=== PATIENT | male | born 1950 | race Caucasian/White ===

== ENCOUNTER 2017-03-04 11:51 | Inpatient (IN) | payer MEDICARE ==
[~2017-03-04] VITALS: Ht 182.9 cm; Wt 100.5 kg
[~2017-03-04 11:51] MED LIST: AMBI5TAB PO; ASPI81CH3; CIAL20TA PO; OMPR20CCR PO; TAMS0.4C67 PO
[2017-03-04 11:54] VITALS: BP 149/72; PULSE 78; RESP 16; TEMP 98.2; O2SAT 98
[2017-03-04] MEDS ORDERED: SODIUM CHLOR 0.9% 1000 ML INJ 1,000 ML IV SCH (13:16)
--- NOTE | 2017-03-04 13:20 | PD ---
HPI Chief Complaint: Abdominal Pain Time Seen by Provider: 13:17 Travel History International Travel<30 days: No Contact w/Intl Traveler<30days: No Traveled to known affect area: No History of Present Illness HPI 66-year-old male presents to the emergency department for evaluation of abdominal pain that started approximately 6 days ago. He states the pain is worse after eating. He reports history of gastric bypass surgery. He states he had similar pain, but not quite as bad in December. He has CT scan of the abdomen/pelvis done at that time which showed no acute abnormality. Patient states pain resolved on its own, but came back approximately 6 days ago. Patient states the pain worsens for several hours after eating that he is quite eating. The patient saw his primary care physician, Dr. Angel, who recommended he come to the emergency department for further evaluation. The patient denies any vomiting. He reports no bowel movement in the past 3 days. No fevers. No chest pain or shortness of breath. Patient is currently on Flomax, Cialis, [id number] Prilosec. He has not yet followed up with gastroenterology, but does have a referral. PFSH Past Medical History Arthritis: Yes Asthma: No Blood Disorders: No Cancer: No Cardiovascular Problems: No High Cholesterol: Yes (TAKING CALUDET) Chest Pain: No Congestive Heart Failure: No COPD: No Cerebrovascular Accident: No Diabetes: No Endocrine: No Gastrointestinal Disorders: Yes (GASTRIC BYPASS 3 WKS AGO, 5 WELL HEALING TINY SURGICAL WOUNDS ON ABD.) GERD: Yes Genitourinary: No Headaches: No Hepatitis: No Hiatal Hernia: No Hypertension: Yes Immune Disorder: No Kidney Stones: Yes Musculoskeletal: No Neurologic: No Psychiatric: No Reproductive: No Respiratory: No Migraines: No Myocardial Infarction: No Renal Failure: No Seizures: No Sleep Apnea: No Thyroid Disease: No Ulcer: No Past Surgical History Abdominal Surgery: Yes (GASTRIC BYPASS 08/02/08) AICD: No Appendectomy: No Body Medical Devices: DENTAL IMPLANTS Cardiac Surgery: No Cholecystectomy: No Ear Surgery: No Endocrine Surgery: No Eye Surgery: Yes (BILAT CATARACT EXT) Genitourinary Surgery: Yes (LITHOTRIPSY) Gynecologic Surgery: No Joint Replacement: No Oral Surgery: No Thoracic Surgery: No Social History Alcohol Use: No Tobacco Use: No Substance Use: No Allergies-Medications (Allergen,Severity, Reaction): Coded Allergies: Neosporin (Verified Allergy, Severe, Rash-ALL "SPORINS" COAUSE A RASH AND BLISTERS", 12/20/15) Reported Meds & Prescriptions Reported Meds & Active Scripts Active Reported Eye Vitamins & Minerals (Multiple Vitamins W/ Minerals) 1 Tab Tab 1 Tab PO DAILY Multi Vitamin Daily (Multiple Vitamin) 1 Tab Tab 1 Tab PO DAILY Vitamin B-12 (Cyanocobalamin) 1,000 Mcg Tab 2,000 Mcg PO DAILY Aspirin Adult Low Strength (Aspirin) 81 Mg Tabdr 81 Mg PO DAILY Prilosec (Omeprazole Magnesium) 20 Mg Tab 20 Mg PO DAILY Cialis (Tadalafil) 5 Mg Tab 5 Mg PO DAILY Do not exceed 1 dose/day. Review of Systems Except as stated in HPI: all other systems reviewed are Neg Physical Exam Narrative GENERAL: Well-nourished, well-developed male patient, ambulatory. Afebrile. SKIN: Focused skin assessment warm/dry. HEAD: Normocephalic. Atraumatic. EYES: No scleral icterus. No injection or drainage. NECK: Supple, trachea midline. No JVD or lymphadenopathy. CARDIOVASCULAR: Regular rate and rhythm without murmurs, gallops, or rubs. RESPIRATORY: Breath sounds equal bilaterally. No accessory muscle use. Lungs sounds are clear to auscultation. GASTROINTESTINAL: Abdomen soft and nondistended. Patient has tenderness in the epigastric region, right upper quadrant, periumbilical region, but the pain is the worst in the epigastric region. MUSCULOSKELETAL: No cyanosis, or edema. BACK: Nontender without obvious deformity. No CVA tenderness. Data Data Last Documented VS Vital Signs Date Time Temp Pulse Resp B/P Pulse Ox O2 Delivery O2 Flow Rate FiO2 03/04/17 14:12 53 18 133/65 100 Room Air 03/04/17 11:54 98.2 Orders Complete Blood Count With Diff (03/04/17 13:16) Comprehensive Metabolic Panel (03/04/17 13:16) Lipase (03/04/17 13:16) Urinalysis - C+S If Indicated (03/04/17 13:16) Ct Abd/Pel W Iv Contrast(Rout) (03/04/17 13:16) Iv Access Insert/Monitor (03/04/17 13:16) Ecg Monitoring (03/04/17 13:16) Oximetry (03/04/17 13:16) Ondansetron Inj (Zofran Inj) (03/04/17 13:30) Sodium Chlor 0.9% 1000 Ml Inj (Ns 1000 M (03/04/17 13:16) Sodium Chloride 0.9% Flush (Ns Flush) (03/04/17 13:30) Morphine Inj (Morphine Inj) (03/04/17 13:30) Iohexol 350 Inj (Omnipaque 350 Inj) (03/04/17 14:31) Consult General Surgery (03/04/17 ) (Hub Use Only)Inp Phy Cons/Ref (03/04/17 ) Labs Laboratory Tests Test 03/04/17 03/04/17 13:30 13:45 White Blood Count 7.3 TH/MM3 Red Blood Count 4.17 MIL/MM3 Hemoglobin 12.5 GM/DL Hematocrit 37.5 % Mean Corpuscular Volume 89.9 FL Mean Corpuscular Hemoglobin 30.0 PG Mean Corpuscular Hemoglobin 33.4 % Concent Red Cell Distribution Width 12.9 % Platelet Count 193 TH/MM3 Mean Platelet Volume 8.1 FL Neutrophils (%) (Auto) 67.1 % Lymphocytes (%) (Auto) 20.7 % Monocytes (%) (Auto) 10.7 % Eosinophils (%) (Auto) 1.1 % Basophils (%) (Auto) 0.4 % Neutrophils # (Auto) 4.9 TH/MM3 Lymphocytes # (Auto) 1.5 TH/MM3 Monocytes # (Auto) 0.8 TH/MM3 Eosinophils # (Auto) 0.1 TH/MM3 Basophils # (Auto) 0.0 TH/MM3 CBC Comment DIFF FINAL Differential Comment Sodium Level 142 MEQ/L Potassium Level 3.6 MEQ/L Chloride Level 105 MEQ/L Carbon Dioxide Level 31.1 MEQ/L Anion Gap 6 MEQ/L Blood Urea Nitrogen 10 MG/DL Creatinine 0.65 MG/DL Estimat Glomerular Filtration 123 ML/MIN Rate Random Glucose 105 MG/DL Calcium Level 8.3 MG/DL Total Bilirubin 0.5 MG/DL Aspartate Amino Transf 31 U/L (AST/SGOT) Alanine Aminotransferase 42 U/L (ALT/SGPT) Alkaline Phosphatase 171 U/L Total Protein 6.6 GM/DL Albumin 3.0 GM/DL Lipase 198 U/L Urine Color YELLOW Urine Turbidity CLEAR Urine pH 6.5 Urine Specific [place] 1.008 Urine Protein NEG mg/dL Urine Glucose (UA) NEG mg/dL Urine Ketones 10 mg/dL Urine Occult Blood NEG Urine Nitrite NEG Urine Bilirubin NEG Urine Urobilinogen LESS THAN 2.0 MG/DL Urine Leukocyte Esterase SMALL Urine RBC 1 /hpf Urine WBC 4 /hpf Urine Squamous Epithelial <1 /hpf Cells Urine Bacteria FEW /hpf Microscopic Urinalysis Comment CULT NOT INDICATED MDM Medical Decision Making Medical Screen Exam Complete: Yes Emergency Medical Condition: Yes Medical Record Reviewed: Yes Interpretation(s) Last Impressions Abdomen/Pelvis CT 03/04/17 1316 Signed Impressions: Service Date/Time: Saturday, March 04, 2017 14:29 - CONCLUSION: 1. Markedly abnormal examination demonstrating dilated thrombosed and inflamed mesenteric veins (SMV and IMV) with thrombus extending to the confluence of the portal vein. Segmental intrahepatic portal vein thrombus likely reflecting emboli. The bowel appears grossly normal at this time without evidence for significant bowel thickening, infarction, or perforation. There is no evidence for significant portal hypertension or cirrhosis. Prior CT examination demonstrated patent but prominent mesenteric veins. Overall findings may reflect a low flow mesenteric AV malformation with subsequent thrombosis or significant outflow obstruction with subsequent thrombosis although differential considerations include severe enteritis and portal hypertension in the appropriate clinical setting. Urgent surgical consultation is recommended. 1. Findings were personally discussed with Dr. Zhong. Mejia Shin MD Differential Diagnosis Pancreatitis versus bowel obstruction versus diverticulitis versus gastritis Narrative Course 66 year old male presents to the emergency department for evaluation of worsening abdominal pain over the past 6 days. CBC, CMP, lipase, UA, CT abdomen /pelvis with IV contrast is ordered and pending. Patient is given normal saline 1 L IV bolus, Zofran 4 mg IV, morphine 4 mg IV. CBC shows slight anemia with hemoglobin 12.5, hematocrit 37.5. CMP shows no acute abnormality. Alkaline phosphatase is elevated at 171. UA shows 10 ketones, no evidence of acute infection. CT the abdomen/pelvis with IV contrast shows markedly abnormal examination demonstrating dilated thrombosed and inflamed mesenteric veins (SMV and IMV) with thrombus extending to the confluence of the portal vein. Segmental intrahepatic portal vein thrombus likely reflecting emboli. The bowel appears grossly normal at this time without evidence for significant bowel thickening, infarction, or perforation. There is no evidence for significant portal hypertension or cirrhosis. Prior CT examination demonstrated patent but prominent mesenteric veins. Overall findings may reflect a low flow mesenteric AV malformation with subsequent thrombosis or significant outflow obstruction with subsequent thrombosis although differential considerations include severe enteritis and portal hypertension in the appropriate clinical setting. Urgent surgical consultation is recommended. I spoke to Dr. Sanford, general surgeon, regarding CT results. He will see the patient and review imaging. [facility] is paged for admission. Dr. Tabor accepted admission. Diagnosis Primary Impression: Mesenteric vein thrombosis Admitting Information Admitting Physician Requests: Admit Diane Hammond Mar 04, 2017 13:20
[2017-03-04] MEDS ORDERED: SODIUM CHLORIDE 0.9% FLUSH 10 ML FLUSH IV FLUSH PRN ×2 (13:30→16:45)
[2017-03-04] MEDS ORDERED: ONDANSETRON HCL 4 MG/2 ML VIAL IVP ONE (13:30)
[2017-03-04] MEDS ORDERED: MORPHINE SULFATE 4 MG/ML INJ IV PUSH ONE (13:30)
[2017-03-04 13:41] LABS: AUTOMATED NEUTROPHIL # 4.9 TH/MM3 (1.8-7.7); BASOPHIL % 0.4 % (0.0-2.0); EOSINOPHIL # 0.1 TH/MM3 (0-0.4); EOSINOPHIL % 1.1 % (0.0-4.0); HEMATOCRIT 37.5 % (39.0-51.0); HEMO FLAGS DIFF FINAL; LYMPH % 20.7 % (9.0-44.0); LYMPHOCYTE # 1.5 TH/MM3 (1.0-4.8); MEAN CELL VOLUME 89.9 FL (80.0-100.0); MEAN CORPUSCULAR HGB CONC 33.4 % (32.0-36.0); MONO % 10.7 % (0.0-8.0); NEUT % 67.1 % (16.0-70.0); PLATELET COUNT 193 TH/MM3 (150-450); RED BLOOD COUNT 4.17 MIL/MM3 (4.50-5.90); RED CELL DISTRIBUTION WIDTH 12.9 % (11.6-17.2); WHITE BLOOD COUNT 7.3 TH/MM3 (4.0-11.0)
[2017-03-04 13:55] LABS: ALT (GPT) 42 U/L (12-78); ANION GAP 6 MEQ/L (5-15); AST (GOT) 31 U/L (15-37); BICARBONATE 31.1 MEQ/L (21.0-32.0); BLOOD UREA NITROGEN 10 MG/DL (7-18); CHLORIDE 105 MEQ/L (98-107); GLOMERULAR FILTRATION RATE 123 ML/MIN (>89); POTASSIUM 3.6 MEQ/L (3.5-5.1); SODIUM (NA) 142 MEQ/L (136-145)
[2017-03-04 13:58] LABS: ALKALINE PHOSPHATASE 171 U/L (45-117); TOTAL BILIRUBIN ADULT 0.5 MG/DL (0.2-1.0)
[2017-03-04] MEDS ORDERED: MULT1TAB46 PO (14:09)
[2017-03-04] MEDS ORDERED: VITA10002 PO (14:09)
[2017-03-04] MEDS ORDERED: PRIL20TA2 PO (14:09)
[2017-03-04] MEDS ORDERED: CIAL5TAB PO (14:09)
[2017-03-04] MEDS ORDERED: ASPI1TAB91 PO (14:09)
[2017-03-04] MEDS ORDERED: MULT1TAB93 PO (14:09)
[2017-03-04 14:12] VITALS: BP 133/65; PULSE 53; RESP 18; O2SAT 100
[2017-03-04] MEDS ORDERED: IOHEXOL 350 MG/ML 10 ML VIAL (for RAD DIAG) IV ONE (14:31)
[2017-03-04 14:46] LABS: BACTERIA, URINE FEW /hpf; BLOOD, URINE NEG (NEG); COMMENT (UR) CULT NOT INDICATED; CULTURE IF INDICATED CULT NOT INDICATED; GLUCOSE,URINE NEG (NEG); KETONE, URINE 10 mg/dL (NEG); NITRITE,URINE NEG (NEG); PH, URINE 6.5 (5.0-8.5); SQUAMOUS EPITHELIAL CELL URINE <1 /hpf (0-5); URINE COLOR YELLOW (YELLW/STRAW)
--- NOTE | 2017-03-04 15:57 | RADRPT ---
EXAM DATE/TIME: 03/04/2017 14:29 [facility] COMPARISON: No previous studies available for comparison. INDICATIONS : Abdomen pain for 7 days. IV CONTRAST: 97 cc Omnipaque 350 (iohexol) IV ORAL CONTRAST: No oral contrast ingested. RADIATION DOSE: 12.99 CTDIvol (mGy) MEDICAL HISTORY : Benign prostatic hyperplasia, (BPH). Renal calculi. SURGICAL HISTORY : Gastric bypass 08/02/08 ENCOUNTER: Initial ACUITY: 1 week PAIN SCALE: 5/10 LOCATION: upper quadrant TECHNIQUE: Volumetric scanning of the abdomen and pelvis was performed. Using automated exposure control and ad justment of the mA and/or kV according to patient size, radiation dose was kept as low as reasonably achievable to obtain optimal diagnostic quality images. FINDINGS: Examination is markedly abnormal. The SMV and IMV are markedly dilated and appear diffusely thrombose d with prominent vasa recta. There is significant associated inflammatory stranding along the course of the veins with thrombus terminating centrally just beyond the confluence of the portal vein. Splen ic vein is patent. Central portal vein is patent. Thrombus is noted in the segmental branches of the portal vein most prominently involving the posterior segment 6 and segment 4 with geographic enhancem ent of the liver. There is no significant bowel wall thickening, pneumatosis, or free air at this dat e. Bowel otherwise appear grossly unremarkable. Aorta is patent. Celiac, SMV, and IMV are widely hernandez nt. Retrospective review of CT exam from 12/25/16 demonstrates prominent mesenteric veins which otherwise appear patent without significant inflammatory change. Overall findings may reflect a low flow mesent bolivar AV malformation with subsequent thrombosis or significant outflow obstruction with subsequent th rombosis although differential considerations include severe enteritis and portal hypertension in the appropriate clinical setting. Of note, there is no evidence for significant portal hypertension with normal size spleen are and no significant volume loss to suggest cirrhosis. Remainder the examination is unchanged. Postsurgical features of prior gastric bypass are noted. Sple en, adrenal glands, and pancreas appear unremarkable. Kidneys demonstrate symmetrical enhancement wit hout evidence for hydronephrosis. Redemonstration of calcified calculi in the inferior pole of the le ft kidney. Bladder is mildly distended but otherwise unremarkable. There is nonspecific enlargement o f the prostate containing calcification. Redemonstration of small fat-containing left inguinal hernia . CONCLUSION: 1. Markedly abnormal examination demonstrating dilated thrombosed and inflamed mesenteric veins (SMV and IMV) with thrombus extending to the confluence of the portal vein. Segmental intrahepatic portal vein thrombus likely reflecting emboli. The bowel appears grossly normal at this time without evidenc e for significant bowel thickening, infarction, or perforation. There is no evidence for significant portal hypertension or cirrhosis. Prior CT examination demonstrated patent but prominent mesenteric v eins. Overall findings may reflect a low flow mesenteric AV malformation with subsequent thrombosis o r significant outflow obstruction with subsequent thrombosis although differential considerations inc lude severe enteritis and portal hypertension in the appropriate clinical setting. Urgent surgical co nsultation is recommended. 1. Findings were personally discussed with Dr. Zhong. Mejia Shin MD on March 04, 2017 at 14:57 Board Certified Radiologist. This report was verified electronically.
[2017-03-04] MEDS ORDERED: LACTULOSE SYRUP 20 GM/30 ML CUP PO PRN (16:45)
[2017-03-04] MEDS ORDERED: ACETAMINOPHEN 325 MG TAB PO PRN (16:45)
[2017-03-04] MEDS ORDERED: BISACODYL 10 MG SUPP RECTAL PRN (16:45)
[2017-03-04] MEDS ORDERED: MAGNESIUM HYDROXIDE SUSP 30 ML CUP PO PRN (16:45)
[2017-03-04] MEDS ORDERED: NALOXONE HCL 0.4 MG/ML AMP IV PRN (16:45)
[2017-03-04] MEDS ORDERED: SENNOSIDES 8.6 MG TAB PO PRN (16:45)
[2017-03-04 17:02] VITALS: O2SAT 99
[2017-03-04] MEDS: SODIUM CHLOR 0.9% 1000 ML INJ 1,000 ML IV SCH ×2 (17:56→20:26)
[2017-03-04 17:57] LABS: RETIC % 0.9 % (0.4-3.0); REVIEW FLAG FINAL
[2017-03-04 18:00] VITALS: BP 170/72; PULSE 62; RESP 18; O2SAT 97
--- NOTE | 2017-03-04 18:34 | HHI.HP ---
[facility] Ton Zarate MD Admission Diagnosis mesenteric vein thrombosis/inflammation Diagnoses: Chief Complaint: Abdominal pain Travel History International Travel<30 Days: No Contact w/Intl Traveler <30 Da: No Traveled to Known Affected Are: No History of Present Illness Written by Ailyn Georges, acting as scribe for Dr. Tabor on 03/04/17 at 18:07. Patient is a 66-year-old male with primary medical history of BPH, history of diabetes, history of gastric bypass who came into the hospital for complaints of severe abdominal pain. Patient states that pain came in last December and they did a CAT scan and found during that time. About 7 days ago pain restarted. Pain is described as sharp mid abdominal pain, aggravated by eating, associated with nausea, rated 3 over 4 intermittently and 10 over 10 with occurrence. Patient has tried taking Tylenol but it wasn't relieved and has been taking 6-10 Advil per day within the last few days. He hasn't been eating well and is very nauseous every time. States that he lost 12 pounds in the last 4 weeks. He called his primary care doctor today and was told to go to the ED for further evaluation. He states he his urine color is orange with decrease water intake. 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 Denies fevers, vomiting, diarrhea, chest pain, palpitations. Denies dizziness, headaches. Denies shortness of breath, cough, dyspnea. Denies change in vision, weakness. Denies dysuria, hematuria. Review of Systems Except as stated in HPI: all other systems reviewed are Neg Past Family Social History Past Medical History Arthritis Multiple kidney stones Hernia Diverticulitis BPH History of diabetes but secondary to gastric bypass he was able to his blood sugars controlled. Multiple rectal fistulas Past Surgical History Gastric bypass 9 years ago 2008 Lithotripsy Bilateral cataract extraction Reported Medications Reported Meds & Active Scripts Active Reported Eye Vitamins & Minerals (Multiple Vitamins W/ Minerals) 1 Tab Tab 1 Tab PO DAILY Multi Vitamin Daily (Multiple Vitamin) 1 Tab Tab 1 Tab PO DAILY Vitamin B-12 (Cyanocobalamin) 1,000 Mcg Tab 2,000 Mcg PO DAILY Aspirin Adult Low Strength (Aspirin) 81 Mg Tabdr 81 Mg PO DAILY Prilosec (Omeprazole Magnesium) 20 Mg Tab 20 Mg PO DAILY Cialis (Tadalafil) 5 Mg Tab 5 Mg PO DAILY Do not exceed 1 dose/day. Allergies: Coded Allergies: Neosporin (Verified Allergy, Severe, Rash-ALL "SPORINS" COAUSE A RASH AND BLISTERS", 12/20/15) Active Ordered Medications Current Medications Medications (Trade) Dose Ordered Sig/Aman Route Start Time Stop Time Status Last Admin (NS 1000 ml Inj) 1,000 ml @ 100 mls/hr Q10H IV 03/04/17 17:00 03/04/17 17:56 (NS Flush) 2 ml UNSCH PRN IV FLUSH 03/04/17 16:45 (NS Flush) 2 ml BID IV FLUSH 03/04/17 21:00 (Tylenol) 650 mg Q4H PRN PO 03/04/17 16:45 (Narcan Inj) 0.4 mg UNSCH PRN IV 03/04/17 16:45 (Rajani-Colace) 1 tab BID PO 03/04/17 21:00 (Milk Of Magnesia Liq) 30 ml Q12H PRN PO 03/04/17 16:45 (Senokot) 17.2 mg Q12H PRN PO 03/04/17 16:45 (Dulcolax Supp) 10 mg DAILY PRN RECTAL 03/04/17 16:45 (Lactulose Liq) 30 ml DAILY PRN PO 03/04/17 16:45 (Morphine Inj) 5 mg Q4H PRN IV PUSH 03/04/17 18:15 UNV Family History Mother had stomach and lung cancer Social History Denies alcohol use Denies tobacco use Denies illicit drug use Physical Exam Vital Signs Vital Signs Date Time Temp Pulse Resp B/P Pulse Ox O2 Delivery O2 Flow Rate FiO2 03/04/17 17:02 99 21 03/04/17 14:12 53 18 133/65 100 Room Air 03/04/17 11:54 98.2 78 16 149/72 98 Physical Exam GENERAL: This is a well-nourished, well-developed patient, in no apparent distress. SKIN: Warm and dry. HEAD: Atraumatic. Normocephalic. No temporal or scalp tenderness. EYES: Pupils equal round and reactive. No scleral icterus. No injection or drainage. ENT: Nose without bleeding. Throat without erythema. Uvula midline. Airway patent. NECK: Trachea midline. No JVD or lymphadenopathy. CARDIOVASCULAR: Regular rate and rhythm without murmurs, gallops, or rubs. RESPIRATORY: Clear to auscultation. Breath sounds equal bilaterally. No wheezes , rales, or rhonchi. GASTROINTESTINAL: Abdomen soft, nondistended. Bowel sounds active 4. Midabdominal tenderness to palpation MUSCULOSKELETAL: Extremities without clubbing, cyanosis, bilateral lower extremity trace edema. NEUROLOGICAL: Awake and alert. Oriented to time, person, place, situation. Motor and sensory grossly within normal limits. Normal speech. Laboratory Laboratory Tests Test 03/04/17 03/04/17 13:30 13:45 White Blood Count 7.3 Red Blood Count 4.17 Hemoglobin 12.5 Hematocrit 37.5 Mean Corpuscular Volume 89.9 Mean Corpuscular Hemoglobin 30.0 Mean Corpuscular Hemoglobin 33.4 Concent Red Cell Distribution Width 12.9 Platelet Count 193 Mean Platelet Volume 8.1 Neutrophils (%) (Auto) 67.1 Lymphocytes (%) (Auto) 20.7 Monocytes (%) (Auto) 10.7 Eosinophils (%) (Auto) 1.1 Basophils (%) (Auto) 0.4 Neutrophils # (Auto) 4.9 Lymphocytes # (Auto) 1.5 Monocytes # (Auto) 0.8 Eosinophils # (Auto) 0.1 Basophils # (Auto) 0.0 CBC Comment DIFF FINAL Differential Comment Blood Smear Pathologist Review Reticulocyte Count 0.9 Absolute Reticulocyte Count 36.0 Haptoglobin 185 Sodium Level 142 Potassium Level 3.6 Chloride Level 105 Carbon Dioxide Level 31.1 Anion Gap 6 Blood Urea Nitrogen 10 Creatinine 0.65 Estimat Glomerular Filtration 123 Rate Random Glucose 105 Calcium Level 8.3 Total Bilirubin 0.5 Direct Bilirubin 0.2 Aspartate Amino Transf 31 (AST/SGOT) Alanine Aminotransferase 42 (ALT/SGPT) Alkaline Phosphatase 171 Lactate Dehydrogenase 185 Total Protein 6.6 Albumin 3.0 Lipase 198 Urine Color YELLOW Urine Turbidity CLEAR Urine pH 6.5 Urine Specific [place] 1.008 Urine Protein NEG Urine Glucose (UA) NEG Urine Ketones 10 Urine Occult Blood NEG Urine Nitrite NEG Urine Bilirubin NEG Urine Urobilinogen LESS THAN 2.0 Urine Leukocyte Esterase SMALL Urine RBC 1 Urine WBC 4 Urine Squamous Epithelial <1 Cells Urine Bacteria FEW Microscopic Urinalysis Comment CULT NOT INDICATED Result Diagram: 03/04/17 1330 03/04/17 1330 Imaging Last Impressions Abdomen/Pelvis CT 03/04/17 1316 Signed Impressions: Service Date/Time: Saturday, March 04, 2017 14:29 - CONCLUSION: 1. Markedly abnormal examination demonstrating dilated thrombosed and inflamed mesenteric veins (SMV and IMV) with thrombus extending to the confluence of the portal vein. Segmental intrahepatic portal vein thrombus likely reflecting emboli. The bowel appears grossly normal at this time without evidence for significant bowel thickening, infarction, or perforation. There is no evidence for significant portal hypertension or cirrhosis. Prior CT examination demonstrated patent but prominent mesenteric veins. Overall findings may reflect a low flow mesenteric AV malformation with subsequent thrombosis or significant outflow obstruction with subsequent thrombosis although differential considerations include severe enteritis and portal hypertension in the appropriate clinical setting. Urgent surgical consultation is recommended. 1. Findings were personally discussed with Dr. Zhong. Mejia Shin MD Assessment and Plan Problem List: (1) Mesenteric vein thrombosis ICD Code: I81 Status: Acute Assessment and Plan Patient is a 66-year-old male with primary medical history of BPH, history of diabetes, history of gastric bypass who came into the hospital for complaints of severe abdominal pain. 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 Presented today with severe abdominal pain. - CT of the abdomen and pelvis showed 1. markedly abnormal examination demonstrating dilated thrombosed and inflamed mesenteric veins (SMV and IMV) with thrombus extending to the confluence of the portal vein. Segmental intrahepatic portal vein thrombus likely reflecting emboli. The bowel appears grossly normal at this time without evidence of significant bowel thickening, infarction, or perforation. There is no evidence for significant portal hypertension or cirrhosis. Prior CT examination demonstrated patent prominent mesenteric veins. Overall findings may reflect a low flow mesenteric AV malformation with subsequent thrombosis or significant outflow obstruction with subsequent thrombosis although the differential considerations include severe enteritis and portal hypertension in appropriate clinical setting. Urgent surgical consultation is recommended. - Surgical consult input appreciated. - Hematology consult input appreciated. May warrant anticoagulation versus surgical intervention. - Keep patient nothing by mouth for now. IV fluids for hydration. - Pain medication IV morphine. - UA ketones 10, small leukoesterase, small urine bacteria - not indicated for cultures. - Check urine hemosiderin, haptoglobin, LDH serum, direct bilirubin, direct Yoel, peripheral smear, reticulocyte count - Repeat CBC, BMP in the AM. Anemia, normocytic normochromic - Can also be related to hemolysis as a presentation of PNH - Monitor CBC trend Full code. SCDs. This note was transcribed by FEDERICO Dietz. I, Dr. Walter Tabor personally performed the history, physical exam, and medical decision making; and confirmed the accuracy of the information in the transcribed note. Authenticated by Dr. Walter Tabor on 03/04/17 at 22:09. Code Status Full code Discussed Condition With Patient, family - and friend, ED attending Physician Certification 2 Midnight Certification Type: Admission for Inpatient Services Order for Inpatient Services The services are ordered in accordance with Medicare regulations or non- Medicare payer requirements, as applicable. In the case of services not specified as inpatient-only, they are appropriately provided as inpatient services in accordance with the 2-midnight benchmark. Estimated LOS (days): 3 days is the estimated time the patient will need to remain in the hospital, assuming treatment plan goals are met and no additional complications. Post-Hospital Plan: Not yet determined Ailyn Cardoso Mar 04, 2017 18:34 Joe Tabor DO Mar 04, 2017 22:10
[2017-03-04 18:39] VITALS: BP 152/74
[2017-03-04] MEDS: MORPHINE SULFATE 8 MG/ML INJ IV PUSH PRN ×2 (18:39→22:35)
[2017-03-04 20:00] VITALS: BP 138/66; PULSE 67; RESP 20; TEMP 99; O2SAT 95
[2017-03-04] MEDS: SODIUM CHLORIDE 0.9% FLUSH 10 ML FLUSH IV FLUSH SCH (20:25)
[2017-03-04] MEDS: DOCUSATE SODIUM 50 MG/SENNA 8.6 MG TAB PO SCH (20:26)
[2017-03-05] VITALS: BP 131/63; PULSE 66; RESP 18; TEMP 98.1; O2SAT 96
[2017-03-05] MEDS: MORPHINE SULFATE 8 MG/ML INJ IV PUSH PRN ×3 (03:46→13:29)
[2017-03-05 04:00] VITALS: BP 158/72; PULSE 70; RESP 18; TEMP 98.9; O2SAT 95
[2017-03-05 05:47] LABS: AUTOMATED NEUTROPHIL # 5.2 TH/MM3 (1.8-7.7); BASOPHIL % 0.4 % (0.0-2.0); EOSINOPHIL # 0.1 TH/MM3 (0-0.4); EOSINOPHIL % 0.8 % (0.0-4.0); HEMATOCRIT 35.1 % (39.0-51.0); HEMO FLAGS DIFF FINAL; LYMPH % 11.6 % (9.0-44.0); LYMPHOCYTE # 0.8 TH/MM3 (1.0-4.8); MEAN CELL VOLUME 90.1 FL (80.0-100.0); MEAN CORPUSCULAR HEMOGLOBIN 30.4 PG (27.0-34.0); MEAN CORPUSCULAR HGB CONC 33.8 % (32.0-36.0); MONO % 11.5 % (0.0-8.0); NEUT % 75.7 % (16.0-70.0); PLATELET COUNT 163 TH/MM3 (150-450); RED CELL DISTRIBUTION WIDTH 12.5 % (11.6-17.2); WHITE BLOOD COUNT 6.8 TH/MM3 (4.0-11.0)
[2017-03-05 05:57] LABS: BICARBONATE 29.1 MEQ/L (21.0-32.0)
[2017-03-05 08:00] VITALS: BP 146/70; PULSE 71; RESP 18; TEMP 97.9; O2SAT 96
[2017-03-05 08:30] VITALS: O2SAT 96
[2017-03-05] MEDS: SODIUM CHLORIDE 0.9% FLUSH 10 ML FLUSH IV FLUSH SCH ×2 (09:00→20:24)
[2017-03-05] MEDS: ASPIRIN EC 81 MG TABEC PO SCH (09:00)
[2017-03-05] MEDS: CYANOCOBALAMIN 1,000 MCG TAB PO SCH (09:06)
[2017-03-05] MEDS: DOCUSATE SODIUM 50 MG/SENNA 8.6 MG TAB PO SCH ×2 (09:06→21:00)
[2017-03-05] MEDS: PANTOPRAZOLE SOD 20 MG DELAYED RELEASE TAB PO SCH (09:06)
[2017-03-05 12:00] VITALS: BP 130/65; PULSE 66; RESP 17; TEMP 98.4; O2SAT 93
[2017-03-05] MEDS ORDERED: PROPOFOL 200 MG/20 ML AMP IV ONE (12:00)
[2017-03-05] MEDS ORDERED: ONDANSETRON HCL 4 MG/2 ML VIAL IV PUSH ONE (12:00)
[2017-03-05] MEDS ORDERED: NEOSTIGMINE 3 MG/3 ML SYR IV ONE (12:00)
[2017-03-05] MEDS ORDERED: LACTATED RINGER'S 1000 ML INJ 2,000 ML IV ONE (12:00)
[2017-03-05] MEDS ORDERED: ePHEDrine/NS 25 MG/5 ML SYR IV ONE (12:00)
[2017-03-05] MEDS: SODIUM CHLOR 0.9% 1000 ML INJ 1,000 ML IV SCH ×2 (13:00→20:10)
[2017-03-05] MEDS ORDERED: ceFAZolin 2 GM PREMIX 50 ML IV SCH (13:15)
[2017-03-05] MEDS ORDERED: metroNIDAZOLE 500 MG INJ 100 ML IV SCH (13:15)
[2017-03-05 14:07] LABS: APTT (PATIENT) 33.1 SEC (24.3-30.1); INTERNATIONAL NORMALIZED RATIO 1.2 RATIO; PROTHROMBIN TIME - PATIENT 13.1 SEC (9.8-11.6)
[2017-03-05] MEDS ORDERED: FAMOTIDINE 20 MG/2 ML VIAL ONE (15:42)
[2017-03-05] MEDS ORDERED: MIDAZOLAM HCL 2 MG/2 ML VIAL ONE (15:42)
[2017-03-05] MEDS ORDERED: DEXAMETHASONE SOD PHOS 4 MG/ML VIAL ONE (15:42)
[2017-03-05] MEDS ORDERED: BUPIVACAINE/EPINEPHRINE 0.5% PF 30 ML VIAL INFIL ONE (16:33)
--- NOTE | 2017-03-05 16:57 | EKG ---
Date Performed: 03/05/2017 Time Performed: 13:32:41 PTAGE: 66 years EKG: Sinus rhythm NORMAL ECG PREVIOUS TRACING : 08/24/2015 08.03 Compared to previous tracing, heart rate has increased. DOCTOR: William Stringer Interpretating Date/Time 03/05/2017 16:53:22
[2017-03-05] MEDS ORDERED: fentaNYL CITRATE 250 MCG/5 ML AMP ONE (19:07)
[2017-03-05] MEDS ORDERED: ACETAMINOPHEN 1000 MG/100 ML VIAL IV ONE (19:21)
--- NOTE | 2017-03-05 19:27 | HHI.PR ---
Subjective Remarks Follow up for abdominal pain, possible mesenteric ischemia, intra-abdominal vein thrombosis. Patient reports moderate pain after surgeon examined abdomen. He reports some nausea but no vomiting. He remains in good spirit. No fever, chills. Objective Vitals Vital Signs Date Time Temp Pulse Resp B/P Pulse Ox O2 Delivery O2 Flow Rate FiO2 03/05/17 12:00 98.4 66 17 130/65 93 03/05/17 09:21 96 Room Air 03/05/17 08:30 96 21 03/05/17 08:00 97.9 71 18 146/70 96 03/05/17 04:00 Room Air 03/05/17 04:00 98.9 70 18 158/72 95 03/05/17 00:00 Room Air 03/05/17 00:00 98.1 66 18 131/63 96 03/04/17 20:00 Room Air 03/04/17 20:00 99.0 67 20 138/66 95 I/O 03/04/17 03/04/17 03/04/17 03/05/17 03/05/17 03/05/17 07:00 15:00 23:00 07:00 15:00 23:00 Intake Total 209 ml 755 ml 0 ml 894 ml Output Total 250 ml 100 ml Balance 209 ml 505 ml -100 ml 894 ml Intake Oral 0 ml 0 ml 0 ml IV Total 209 ml 755 ml 894 ml Output Urine Total 250 ml 100 ml # Voids 0 # Bowel Movements 0 0 0 Result Diagram: 03/05/17 0446 03/05/17 0446 Imaging Last Impressions Abdomen/Pelvis CT 03/04/17 1316 Signed Impressions: Service Date/Time: Saturday, March 04, 2017 14:29 - CONCLUSION: 1. Markedly abnormal examination demonstrating dilated thrombosed and inflamed mesenteric veins (SMV and IMV) with thrombus extending to the confluence of the portal vein. Segmental intrahepatic portal vein thrombus likely reflecting emboli. The bowel appears grossly normal at this time without evidence for significant bowel thickening, infarction, or perforation. There is no evidence for significant portal hypertension or cirrhosis. Prior CT examination demonstrated patent but prominent mesenteric veins. Overall findings may reflect a low flow mesenteric AV malformation with subsequent thrombosis or significant outflow obstruction with subsequent thrombosis although differential considerations include severe enteritis and portal hypertension in the appropriate clinical setting. Urgent surgical consultation is recommended. 1. Findings were personally discussed with Dr. Zhong. Mejia Shin MD Objective Remarks GENERAL: AOX3, NAD. SKIN: Warm and dry. HEAD: Normocephalic. EYES: No scleral icterus. No injection or drainage. NECK: Supple, trachea midline. No JVD or lymphadenopathy. CARDIOVASCULAR: Regular rate and rhythm without murmurs, gallops, or rubs. RESPIRATORY: Breath sounds equal bilaterally. No accessory muscle use. GASTROINTESTINAL: Abdomen soft, Diffusely tender to palpation, pearl lower quadrants, nondistended. MUSCULOSKELETAL: No cyanosis, or edema. BACK: Nontender without obvious deformity. No CVA tenderness. Procedures None. A/P Problem List: (1) Mesenteric vein thrombosis ICD Code: I81 Status: Acute Assessment and Plan Patient is a 66-year-old male with primary medical history of BPH, history of diabetes, history of gastric bypass who came into the hospital for complaints of severe abdominal pain. 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 Abdominal pain - more severe post-prandially. - History of gastric bypass - Patient had also a history of multiple DVTs and was treated with warfarin for approximately 6 months at a time. - CT abd/pelvis indicates portal vein thrombosis, mesenteric vein thrombosis. - Work up rules out PNH. - Discussed with Dr. Stark who agrees with exploratory laparotomy. - Clinically, patient's symptoms are consistent with mesenteric ischemia. Full code. Lovenox 40mg Q24hrs. Joe Tabor DO Mar 05, 2017 19:27
[2017-03-05] MEDS ORDERED: ACETAMINOPHEN/HYDROcodone 325 MG/5 MG TAB PO PRN ×2 (19:30)
[2017-03-05] MEDS ORDERED: Post-op Orders (for Pharmacy) MISC XX ONE (19:30)
[2017-03-05] MEDS ORDERED: ONDANSETRON HCL 4 MG/2 ML VIAL IV PRN (19:30)
[2017-03-05] MEDS ORDERED: NALOXONE HCL 0.4 MG/ML AMP IV PRN (19:30)
[2017-03-05] MEDS ORDERED: SODIUM CHLORIDE 0.9% FLUSH 10 ML FLUSH IV FLUSH PRN (19:30)
[2017-03-05] MEDS ORDERED: MAGNESIUM HYDROXIDE SUSP 30 ML CUP PO PRN (19:30)
[2017-03-05] MEDS ORDERED: DO NOT ADM ANY ANTICOAGULANT DRUGS PRN (20:15)
[2017-03-05] MEDS: MORPHINE SULFATE 30 MG/30 ML PCA IV SCH (20:16)
[2017-03-05 20:45] VITALS: BP 149/71; PULSE 83; RESP 20; TEMP 97.4; O2SAT 96
[2017-03-05] MEDS: PCA - TOTAL MG MORPHINE DELIVERED PER SHIFT SCH (22:00)
[2017-03-06] VITALS (8 sets, daily range): BP systolic 128–148; BP diastolic 62–73; PULSE 61–85; RESP 17–20; TEMP 97.8–99.1; O2SAT 94–98
[2017-03-06] MEDS: metroNIDAZOLE 500 MG INJ 100 ML IV SCH ×3 (00:18→16:29)
[2017-03-06 05:09] LABS: AUTOMATED NEUTROPHIL # 8.6 TH/MM3 (1.8-7.7); BASOPHIL % 0.1 % (0.0-2.0); HEMATOCRIT 34.2 % (39.0-51.0); HEMO FLAGS DIFF FINAL; LYMPH % 4.4 % (9.0-44.0); LYMPHOCYTE # 0.4 TH/MM3 (1.0-4.8); MEAN CELL VOLUME 89.5 FL (80.0-100.0); MEAN CORPUSCULAR HEMOGLOBIN 30.4 PG (27.0-34.0); MEAN CORPUSCULAR HGB CONC 33.9 % (32.0-36.0); MONO % 8.9 % (0.0-8.0); NEUT % 86.6 % (16.0-70.0); PLATELET COUNT 184 TH/MM3 (150-450); RED BLOOD COUNT 3.82 MIL/MM3 (4.50-5.90); RED CELL DISTRIBUTION WIDTH 12.3 % (11.6-17.2)
[2017-03-06 05:51] LABS: BICARBONATE 25.2 MEQ/L (21.0-32.0); MAGNESIUM 1.9 MG/DL (1.5-2.5); POTASSIUM 4.4 MEQ/L (3.5-5.1)
[2017-03-06] MEDS: PCA - TOTAL MG MORPHINE DELIVERED PER SHIFT SCH ×3 (06:00→22:00)
[2017-03-06] MEDS: SODIUM CHLOR 0.9% 1000 ML INJ 1,000 ML IV SCH ×2 (06:14→16:29)
--- NOTE | 2017-03-06 06:18 | MB ---
cc: ZANE HUBBARD MD DATE OF CONSULTATION 03/04/2017 REASON FOR CONSULTATION History of gastric bypass and abdominal pain, thrombosis. HISTORY OF PRESENT ILLNESS The patient is a 66-year-old male who presented with acute onset of abdominal pain. He states that the pain was initially 10/10 and was getting worse. He states his pain was somewhat diffuse, worse with meals, better with not eating. He states some 12-pound weight loss over the past couple weeks. He states the pain is achy, at times it is sharp. He denies any significant nausea or vomiting. He came to the emergency department for further workup including CT scan showing extensive thrombosis in the inferior mesenteric vein, superior mesenteric vein, splenic vein and portal vein. Surgery was consulted for further evaluation. On my exam the patient confirms the pain and significance. On further questioning the patient was noted to have a gastric [place] [address] Bowers. He states he has done relatively well with his weight loss. He was initially 342 pounds, lost weight down to 170 pounds and is currently a BMI of 28 and 285 pounds. Over the last several weeks he has noticed some significant bloating and pain. He did have a CT scan done on 12/27/2016 for evaluation without evidence of clot or abnormality at that time. The patient states the pain improved on its own, then got significantly worse. Until he came in today. He has also further had a history of thrombosis in the past, one in his lower extremity and also one and his portal vein back in 2007 during the four weeks after his gastric bypass for which both times he has been treated with a course of anticoagulation. He states he is currently not on anticoagulation and confirms pain is similar to previous episodes. The patient further denies fevers or chills. Workup including WBC was normal and no fevers or tachycardia while for admission in the emergency department. PAST MEDICAL HISTORY 1. DVT. 2. Splenic vein thrombosis. 3. Morbid obesity. 4. Arthritis. 5. Kidney stones. 6. Hernia. 7. Diverticulitis. 8. BPH. 9. Diabetes resolved after bypass. 10. Rectal fistulas. 11. Rheumatoid arthritis. PAST SURGICAL HISTORY 1. Gastric bypass in 2007. 2. Lithotripsy. 3. Cataract extraction. SOCIAL HISTORY Denies smoking, EtOH or IVDA. ALLERGIES NEOSPORIN. MEDICATIONS See EMR. FAMILY HISTORY Denies diabetes or hypertension. REVIEW OF SYSTEMS GENERAL: Denies headache or pain. HEENT: Denies eye pain, ear pain. NECK: Denies swelling or pain. RESPIRATORY: Denies cough or wheeze. HEART: Denies palpitation or chest pain. ABDOMEN: Complains of abdominal pain. Denies nausea. EXTREMITIES: Denies arthralgia, myalgias. : Denies dysuria, hematuria. ENDOCRINE: Denies polyuria, polydipsia. NEUROLOGIC: Denies numbness or tingling. INTEGUMENT: Denies any masses or lesions. PHYSICAL EXAMINATION GENERAL: Patient no acute distress. VITAL SIGNS: Temperature 98.2, pulse 78, respirations 16, blood pressure 149/72, saturation 98% on room air. HEENT: PERRLA. Pupils equal round reactive. NECK: Supple. Trachea midline. LUNGS: Bilateral expansion. Clear. HEART: S1, S2, regular. ABDOMEN: Positive tenderness to palpation, soft. No peritoneal signs, no rebound. Well-healed laparoscopic surgical incisions. EXTREMITIES: Warm, well-perfused. PSYCH: Normal mood, normal affect. LABORATORY AND DIAGNOSTIC DATA WBC is 7.3, hemoglobin 12.5, hematocrit 37.5, platelets 193. Sodium 142, potassium 3.6, chloride 105, BUN 10, creatinine 0.65, calcium 8.3, AST 31, ALT 42, alk phos 171, albumin 3.0, lipase 198. INR 1.2, PT 13.1. IMAGING STUDIES CT reviewed by myself - Distended, dilated, thrombosed, inflamed mesenteric veins, SMV and IMV, thrombosis extending into confluence of portal vein. Segmental intrahepatic portal vein thrombosis. Bowel grossly normal. No evidence of perforation or free air. ASSESSMENT The patient is a 66-year-old male with acute onset of abdominal pain, history of gastric bypass, history of venous thrombosis, history of anticoagulation, presents with recurrent thrombosis of IMV, SMV, portal vein, splenic vein. PLAN After full clinical, radiologic and laboratory workup the patient with above-named issues including extensive venous thrombosis. At this point the patient does appear stable without peritoneal signs. However, there is question mesenteric stranding, thickening and some edema. The patient also has a shift in white count. We will need to monitor this very closely. Repeat labs, serial abdominal exams. The may warrant operative intervention including diagnostic laparoscopy. Further recommend anticoagulation including consultation with hematology for assessment and further workup. The patient will need coagulation workup to identify potential factors contributing to the patient's multiple thrombosis. Further will discuss with Dr. Bowers and the bariatric surgical team for further management and evaluation. Currently the patient needs to be n.p.o., IV fluids, pain control. Thank you for the consultation. We will continue to follow along with you. MD HEATHER Pulido/CHARLOTTE /9:21 PM /6:04 AM
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
[2017-03-06] MEDS: SODIUM CHLORIDE 0.9% FLUSH 10 ML FLUSH IV FLUSH SCH ×2 (07:12→21:00)
--- NOTE | 2017-03-06 07:39 | HHI.PR ---
Subjective Remarks Follow up for portal vein, mesenteric vein thrombosis. Patient underwent ex-lap yesterday. Patient is currently doing well. He reports some abdominal pain. No fever or chills. Objective Vitals Vital Signs Date Time Temp Pulse Resp B/P Pulse Ox O2 Delivery O2 Flow Rate FiO2 03/06/17 04:00 97.8 78 20 141/65 95 03/06/17 00:00 98.0 85 20 142/65 97 03/05/17 21:00 Nasal Cannula 3.00 03/05/17 20:45 97.4 83 20 149/71 96 03/05/17 20:20 99.1 77 18 159/69 95 Nasal Cannula 3 03/05/17 20:16 20 03/05/17 20:15 84 17 165/78 94 Nasal Cannula 3 03/05/17 20:00 84 16 153/73 95 Nasal Cannula 3 03/05/17 19:45 90 19 144/67 95 Nasal Cannula 3 03/05/17 19:39 99.6 89 14 137/63 96 Nasal Cannula 8 03/05/17 12:00 98.4 66 17 130/65 93 03/05/17 09:21 96 Room Air 03/05/17 08:30 96 21 03/05/17 08:00 97.9 71 18 146/70 96 I/O 03/05/17 03/05/17 03/05/17 03/06/17 03/06/17 03/06/17 07:00 15:00 23:00 07:00 15:00 23:00 Intake Total 755 ml 0 ml 3194 ml 1163 ml Output Total 250 ml 100 ml 425 ml 900 ml Balance 505 ml -100 ml 2769 ml 263 ml Intake Oral 0 ml 0 ml 0 ml 480 ml IV Total 755 ml 1194 ml 683 ml Other 2000 ml Output Urine Total 250 ml 100 ml 125 ml 900 ml Estimated Blood Loss 100 ml Other 200 ml # Bowel Movements 0 0 0 0 Result Diagram: 03/06/17 0421 03/06/17 042 Imaging Last Impressions Abdomen/Pelvis CT 03/04/17 1316 Signed Impressions: Service Date/Time: Saturday, March 04, 2017 14:29 - CONCLUSION: 1. Markedly abnormal examination demonstrating dilated thrombosed and inflamed mesenteric veins (SMV and IMV) with thrombus extending to the confluence of the portal vein. Segmental intrahepatic portal vein thrombus likely reflecting emboli. The bowel appears grossly normal at this time without evidence for significant bowel thickening, infarction, or perforation. There is no evidence for significant portal hypertension or cirrhosis. Prior CT examination demonstrated patent but prominent mesenteric veins. Overall findings may reflect a low flow mesenteric AV malformation with subsequent thrombosis or significant outflow obstruction with subsequent thrombosis although differential considerations include severe enteritis and portal hypertension in the appropriate clinical setting. Urgent surgical consultation is recommended. 1. Findings were personally discussed with Dr. Zhong. Mejia Shin MD Objective Remarks GENERAL: AOX3, NAD. SKIN: Warm and dry. HEAD: Normocephalic. EYES: No scleral icterus. No injection or drainage. NECK: Supple, trachea midline. No JVD or lymphadenopathy. CARDIOVASCULAR: Regular rate and rhythm without murmurs, gallops, or rubs. RESPIRATORY: Breath sounds equal bilaterally. No accessory muscle use. GASTROINTESTINAL: Abdomen soft, Diffusely tender to palpation, pearl lower quadrants, nondistended. MUSCULOSKELETAL: No cyanosis, or edema. BACK: Nontender without obvious deformity. No CVA tenderness. Procedures None. A/P Problem List: (1) Mesenteric vein thrombosis ICD Code: I81 Status: Acute Assessment and Plan Patient is a 66-year-old male with primary medical history of BPH, history of diabetes, history of gastric bypass who came into the hospital for complaints of severe abdominal pain. 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 Abdominal pain - more severe post-prandially. - History of gastric bypass - Patient had also a history of multiple DVTs and was treated with warfarin for approximately 6 months at a time. - CT abd/pelvis indicates portal vein thrombosis, mesenteric vein thrombosis. - Work up rules out PNH. - s/p ex lap. No bowel resection was done. Patient is now on clear liquid diet. - If he tolerates food better and abdominal pain is well controlled, we can potentially discharge patient on 03/07/2017 or 03/08/2017. Full code. Lovenox 40mg Q24hrs. Joe Tabor DO Mar 06, 2017 7:39 am
[2017-03-06] MEDS: PANTOPRAZOLE SOD 20 MG DELAYED RELEASE TAB PO SCH (09:28)
[2017-03-06] MEDS: CYANOCOBALAMIN 1,000 MCG TAB PO SCH (09:28)
[2017-03-06] MEDS: DOCUSATE SODIUM 50 MG/SENNA 8.6 MG TAB PO SCH ×2 (09:28→21:00)
[2017-03-06] MEDS: ASPIRIN EC 81 MG TABEC PO SCH (09:28)
--- NOTE | 2017-03-06 12:18 | PD.ONC.PN ---
Subjective Subjective Remarks Afebrile overnight. Pt had exp laparoscopy yesterday Currently with some mild diffuse abd pain Asking to have Adorno cath removed. Objective Data Date Time Temp Pulse Resp B/P Pulse Ox O2 Delivery O2 Flow Rate FiO2 03/06/17 08:00 98.2 61 20 146/68 98 03/06/17 08:00 98.2 61 20 146/68 98 03/06/17 04:00 97.8 78 20 141/65 95 03/06/17 00:00 98.0 85 20 142/65 97 03/05/17 21:00 Nasal Cannula 3.00 03/05/17 20:45 97.4 83 20 149/71 96 03/05/17 20:20 99.1 77 18 159/69 95 Nasal Cannula 3 03/05/17 20:16 20 03/05/17 20:15 84 17 165/78 94 Nasal Cannula 3 03/05/17 20:00 84 16 153/73 95 Nasal Cannula 3 03/05/17 19:45 90 19 144/67 95 Nasal Cannula 3 03/05/17 19:39 99.6 89 14 137/63 96 Nasal Cannula 8 03/06/17 03/06/17 03/06/17 07:00 15:00 23:00 Intake Total 1163 ml Output Total 900 ml 570 ml Balance 263 ml -570 ml Result Diagram: 03/06/17 0421 03/06/17 0421 Laboratory Results Laboratory Tests Test 03/05/17 03/06/17 13:50 04:21 Prothrombin Time 13.1 SEC Prothromb Time International 1.2 RATIO Ratio Activated Partial 33.1 SEC Thromboplast Time White Blood Count 10.0 TH/MM3 Red Blood Count 3.82 MIL/MM3 Hemoglobin 11.6 GM/DL Hematocrit 34.2 % Mean Corpuscular Volume 89.5 FL Mean Corpuscular Hemoglobin 30.4 PG Mean Corpuscular Hemoglobin 33.9 % Concent Red Cell Distribution Width 12.3 % Platelet Count 184 TH/MM3 Mean Platelet Volume 8.1 FL Neutrophils (%) (Auto) 86.6 % Lymphocytes (%) (Auto) 4.4 % Monocytes (%) (Auto) 8.9 % Eosinophils (%) (Auto) 0.0 % Basophils (%) (Auto) 0.1 % Neutrophils # (Auto) 8.6 TH/MM3 Lymphocytes # (Auto) 0.4 TH/MM3 Monocytes # (Auto) 0.9 TH/MM3 Eosinophils # (Auto) 0.0 TH/MM3 Basophils # (Auto) 0.0 TH/MM3 CBC Comment DIFF FINAL Differential Comment Sodium Level 139 MEQ/L Potassium Level 4.4 MEQ/L Chloride Level 105 MEQ/L Carbon Dioxide Level 25.2 MEQ/L Anion Gap 9 MEQ/L Blood Urea Nitrogen 11 MG/DL Creatinine 0.64 MG/DL Estimat Glomerular Filtration 125 ML/MIN Rate Random Glucose 221 MG/DL Calcium Level 7.2 MG/DL Protein Corrected Calcium 8.0 MG/DL Magnesium Level 1.9 MG/DL Total Protein 5.6 GM/DL Administered Medications Medications (Trade) Dose Ordered Sig/Aman Route PRN Reason Start Time Stop Time Status Last Admin Dose Admin Senna/Docusate Sodium (Rajani-Colace) 1 tab BID PO 03/04/17 21:00 03/06/17 09:28 Aspirin (Ecotrin Ec) 81 mg DAILY PO 03/05/17 09:00 03/06/17 09:28 Cyanocobalamin (Vitamin B12) 2,000 mcg DAILY PO 03/05/17 09:00 03/06/17 09:28 Pantoprazole Sodium 20 mg 20 mg DAILY PO 03/05/17 09:00 03/06/17 09:28 Sodium Chloride (NS 1000 ml Inj) 1,000 ml @ 100 mls/hr Q10H IV 03/05/17 19:23 03/06/17 06:14 Sodium Chloride (NS Flush) 2 ml BID IV FLUSH 03/05/17 21:00 03/05/17 20:24 Ondansetron HCl 4 mg 4 mg Q4H PRN IV NAUSEA OR VOMITING 03/05/17 19:30 03/06/17 11:49 Cefazolin Sodium 1000 mg/Sodium Chloride 100 ml @ 200 mls/hr Q8H IV 03/06/17 00:00 03/06/17 16:29 03/06/17 09:28 Metronidazole (Flagyl 500 Mg Inj) 100 ml @ 200 mls/hr Q8H IV 03/06/17 00:00 03/06/17 16:29 03/06/17 10:27 Morphine Sulfate (Morphine 1 Mg/ ml CHIEF EXECUTIVE OR MANAGING DIRECTOR) 30 mg UNSCH IV 03/05/17 19:30 03/05/17 20:16 CHIEF EXECUTIVE OR MANAGING DIRECTOR Dosage Infused (Pha) 1 Q8HR .XX 03/05/17 22:00 03/06/17 06:00 Objective Remarks GENERAL: Well-appearing middle aged male, lying in bed in no distress. SKIN: Warm and dry. HEAD: Normocephalic. EYES: No injection or drainage. NECK: Supple, trachea midline. CARDIOVASCULAR: Regular rate and rhythm without murmurs. RESPIRATORY: Breath sounds equal bilaterally. No accessory muscle use. GASTROINTESTINAL: Abdomen soft, non-tender, nondistended. EXTREMITIES: No cyanosis, or edema. SCD's to BLE. NEUROLOGICAL: No obvious focal deficit. Awake, alert, and oriented x3. Assessment/Plan Problem List: (1) Mesenteric vein thrombosis Status: Acute Plan: 03/06: The pt will need lifelong anticoagulation as this is his third thrombosis. We will start him on a heparin gtt due to recent surgery and eventually transition him to po Eliquis. He can followup as an outpatient for hypercoagulable workup; however the results will not change current treatment. --CT Abdomen/Pelvis shows mesenteric thrombosis. This is the pt's third known clot. He previously was treated with Coumadin twice after a LLE DVT and also a portal vein DVT. Assessment 66 y/o male with history of multiple thromboses admitted with abdominal pain Attending Statement less abd pain s/p surg and lysis of adhesion heparin for PVT d/w pt and . The exam, history, and the medical decision-making described in the above note were completed with the assistance of the mid-level provider. I reviewed and agree with the findings presented. I attest that I had a [id number] encounter with the patient on the same day, and personally performed and documented my assessment and findings in the medical record. Cleo Merchant Mar 06, 2017 12:18 Natalie Stark MD Mar 07, 2017 00:50
--- NOTE | 2017-03-06 12:37 | HHI.PR ---
Subjective Subjective Notes Resting in bed Wants Adorno catheter out at bedside Objective Vitals/I&O Vital Signs Date Time Temp Pulse Resp B/P Pulse Ox O2 Delivery O2 Flow Rate FiO2 03/06/17 08:00 98.2 61 20 146/68 98 03/05/17 21:00 Nasal Cannula 3.00 03/05/17 08:30 21 Labs Laboratory Tests Test 03/05/17 03/06/17 13:50 04:21 Prothrombin Time 13.1 Prothromb Time International 1.2 Ratio Activated Partial 33.1 Thromboplast Time White Blood Count 10.0 Red Blood Count 3.82 Hemoglobin 11.6 Hematocrit 34.2 Mean Corpuscular Volume 89.5 Mean Corpuscular Hemoglobin 30.4 Mean Corpuscular Hemoglobin 33.9 Concent Red Cell Distribution Width 12.3 Platelet Count 184 Mean Platelet Volume 8.1 Neutrophils (%) (Auto) 86.6 Lymphocytes (%) (Auto) 4.4 Monocytes (%) (Auto) 8.9 Eosinophils (%) (Auto) 0.0 Basophils (%) (Auto) 0.1 Neutrophils # (Auto) 8.6 Lymphocytes # (Auto) 0.4 Monocytes # (Auto) 0.9 Eosinophils # (Auto) 0.0 Basophils # (Auto) 0.0 CBC Comment DIFF FINAL Differential Comment Sodium Level 139 Potassium Level 4.4 Chloride Level 105 Carbon Dioxide Level 25.2 Anion Gap 9 Blood Urea Nitrogen 11 Creatinine 0.64 Estimat Glomerular Filtration 125 Rate Random Glucose 221 Calcium Level 7.2 Protein Corrected Calcium 8.0 Magnesium Level 1.9 Total Protein 5.6 Cardiovascular: Regular Lungs: Clear Abdomen: Other (lap sites c/d/i; abdomen mildly distended), Post-op tenderness Extremities: No edema A/P Assessment and Plan 66 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 Dillard to take over care Emily Rollins Mar 06, 2017 12:37
--- NOTE | 2017-03-06 13:30 | MP ---
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 PROCEDURE 1. Laparoscopy with extensive lysis of adhesions approximately an hour and 40 minutes worth. 2. Repair of Zhong defect and defect at enteroenterostomy. SURGEON Romaine Holliday MD GREEN CHAIN OPERATOR MD Dr. Juvenal Sutherland's assistance was necessary for the procedure due to the complexity of the procedure due to the patient's prior history of gastric bypass. He assisted with manipulation and exposure during the procedure. The first coat operator provided by the hospital was utilized for camera operation and at the back table. INDICATION This is a patient who underwent a laparoscopic Saad-en-Y gastric bypass and was previously doing well. His primary operation was approximately nine years ago. He began experiencing abdominal pain a month ago which precipitated and began approximately a week ago. He was evaluated and noted to have splenic vein thrombus, as well as a mesenteric vein thrombus. The patient also had symptoms of obstruction and as a result he was brought to the operating room for laparoscopy for the possibility of volvulus of the small bowel after obtaining informed consent. FINDINGS The patient had extensive adhesions of small bowel to the Saad limb, to the abdominal wall as well as interloop adhesions. The patient had a Dick defect which partially occluded his jejunojejunostomy. There were adhesions of the small bowel mesentery to the transverse mesocolon mesentery as well. A hiatal hernia was noted as well. ESTIMATED BLOOD LOSS 100 cc COMPLICATIONS None OPERATION The patient was brought to the operating room and placed on the operating table in the supine position. Bilateral sequential inflation devices placed on the lower extremities. General anesthesia instituted. A Adorno catheter was placed. Antibiotics initiated. The abdomen was prepped and draped sterilely. A point in the epigastric region was anesthetized with 0.25% Marcaine with epinephrine. A skin incision was made. A 5 mm OptiView port was placed under direct vision and pneumoperitoneum created. Under direct vision, two 5 mm left upper quadrant and a 5 mm right upper quadrant port was placed. Prior to placement of all ports, the skin and peritoneum were anesthetized with 0.25% Marcaine with epinephrine. The abdominal cavity was inspected. Findings as above. Attention first focused in the epigastrium. The adhesions of the Saad limb to the abdominal wall was taken down using sharp dissection. Meticulous care was taken not to injure the bowel during this is dissection. Tedious dissection small bowel, the Saad limb was from the mesentery of the biliopancreatic limb. Attention was then focused on the mesentery of the Saad limb which was also adhesed to the mesentery of the transverse mesocolon. Once the Saad limb was mobilized and inspected further, there appeared to be a Dick defect that was partially equally partially obstructing the jejunojejunostomy. The small bowel was reduced through the transverse mesocolon. This defect was then closed around the Saad limb using 2-0 silk suture in an interrupted manner. Care was taken not to encroach on the small bowel during closure. The defect of the enteroenterostomy was also identified and closed with 2-0 silk suture in a running manner. The small bowel was inspected to the ileocecal valve. No evidence of obstruction identified further. No torsion of the bowel identified. There was dense mesentery associated with the right colon and the bowel both large and small bowel appeared viable without any signs of ischemia. At this point, the operation was terminated. The CO2 was released. All ports were removed. All skin incisions were closed with 4-0 Monocryl. The abdominal wall was cleaned and a sterile dressing placed. The patient was awakened and taken to recovery room. MD JUAN Reyes/QUIQUE /8:15 PM /1:20 PM
[2017-03-06 13:56] LABS: HEMATOCRIT 32.2 % (39.0-51.0); MEAN CELL VOLUME 89.9 FL (80.0-100.0); MEAN CORPUSCULAR HEMOGLOBIN 29.9 PG (27.0-34.0); MEAN CORPUSCULAR HGB CONC 33.2 % (32.0-36.0); PLATELET COUNT 188 TH/MM3 (150-450); RED BLOOD COUNT 3.58 MIL/MM3 (4.50-5.90); RED CELL DISTRIBUTION WIDTH 12.2 % (11.6-17.2); REVIEW FLAG FINAL; WHITE BLOOD COUNT 11.2 TH/MM3 (4.0-11.0)
[2017-03-06 14:05] LABS: INTERNATIONAL NORMALIZED RATIO 1.2 RATIO; PROTHROMBIN TIME - PATIENT 13.3 SEC (9.8-11.6)
[2017-03-06] MEDS: HEPARIN-D5W INJ 250 ML IV SCH (14:54)
[2017-03-06] MEDS: MORPHINE SULFATE 30 MG/30 ML PCA IV SCH (15:21)
[2017-03-06 16:11] LABS: HEMOSIDERIN URINE Negative (Negative)
[2017-03-06] MEDS ORDERED: CALCIUM CARBONATE 500 MG CHEWABLE TAB CHEW PRN (18:00)
[2017-03-06] MEDS ORDERED: ENOXAPARIN SODIUM 40 MG/0.4 ML SYRINGE SQ SCH (18:45)
[2017-03-06 22:30] LABS: APTT (PATIENT) 40.6 SEC (24.3-30.1)
[2017-03-07] VITALS (11 sets, daily range): BP systolic 124–168; BP diastolic 62–80; PULSE 60–71; RESP 17–20; TEMP 96.8–98.4; O2SAT 94–98
[2017-03-07] MEDS: SODIUM CHLOR 0.9% 1000 ML INJ 1,000 ML IV SCH ×3 (05:16→14:56)
[2017-03-07] MEDS: HEPARIN-D5W INJ 250 ML IV SCH ×2 (05:17→20:52)
[2017-03-07] MEDS: PCA - TOTAL MG MORPHINE DELIVERED PER SHIFT SCH ×3 (05:19→20:56)
[2017-03-07 05:21] LABS: APTT (PATIENT) 41.5 SEC (24.3-30.1)
[2017-03-07] MEDS: ASPIRIN EC 81 MG TABEC PO SCH (09:00)
[2017-03-07] MEDS: SODIUM CHLORIDE 0.9% FLUSH 10 ML FLUSH IV FLUSH SCH ×2 (09:00→20:52)
[2017-03-07] MEDS: PANTOPRAZOLE SOD 20 MG DELAYED RELEASE TAB PO SCH (09:17)
[2017-03-07] MEDS: DOCUSATE SODIUM 50 MG/SENNA 8.6 MG TAB PO SCH ×2 (09:17→20:44)
[2017-03-07] MEDS: CYANOCOBALAMIN 1,000 MCG TAB PO SCH (09:17)
--- NOTE | 2017-03-07 09:25 | HHI.PR ---
Subjective Remarks Follow up for portal vein, mesenteric vein thrombosis. Patient seen and examined. He states that his abdominal pain is worse. States it worsens with PO intake. No BM as of yet. Patient has been belching but denies passing any gas. Denies any recent fever, chills, cough, shortness of breath, nausea, vomiting or diarrhea. Objective Vitals Vital Signs Date Time Temp Pulse Resp B/P Pulse Ox O2 Delivery O2 Flow Rate FiO2 03/07/17 05:19 18 03/07/17 04:39 97.7 62 17 124/62 96 03/07/17 00:12 97.6 60 18 133/63 98 03/06/17 22:00 18 03/06/17 20:20 99.1 80 17 142/62 97 03/06/17 18:11 94 Nasal Cannula 2.00 03/06/17 16:50 97.8 61 20 148/68 94 03/06/17 16:50 97.8 61 20 148/68 94 03/06/17 15:21 16 03/06/17 14:00 16 03/06/17 12:45 98.7 70 18 128/73 98 03/06/17 12:00 98.7 70 18 128/73 98 03/06/17 12:00 98.7 70 18 128/73 98 03/06/17 09:30 98 Nasal Cannula 2.00 I/O 03/06/17 03/06/17 03/06/17 03/07/17 03/07/17 03/07/17 06:59 14:59 22:59 06:59 14:59 22:59 Intake Total 1163 ml 853 ml 360 ml 280 ml Output Total 900 ml 570 ml 600 ml 600 ml Balance 263 ml 283 ml -240 ml -320 ml Intake Oral 480 ml 360 ml 280 ml IV Total 683 ml 853 ml Output Urine Total 900 ml 570 ml 600 ml 600 ml # Bowel Movements 0 Result Diagram: 03/06/17 1310 03/06/17 0421 Imaging Last Impressions Abdomen/Pelvis CT 03/04/17 1316 Signed Impressions: Service Date/Time: Saturday, March 04, 2017 14:29 - CONCLUSION: 1. Markedly abnormal examination demonstrating dilated thrombosed and inflamed mesenteric veins (SMV and IMV) with thrombus extending to the confluence of the portal vein. Segmental intrahepatic portal vein thrombus likely reflecting emboli. The bowel appears grossly normal at this time without evidence for significant bowel thickening, infarction, or perforation. There is no evidence for significant portal hypertension or cirrhosis. Prior CT examination demonstrated patent but prominent mesenteric veins. Overall findings may reflect a low flow mesenteric AV malformation with subsequent thrombosis or significant outflow obstruction with subsequent thrombosis although differential considerations include severe enteritis and portal hypertension in the appropriate clinical setting. Urgent surgical consultation is recommended. 1. Findings were personally discussed with Dr. Zhong. Mejia Shin MD Objective Remarks GENERAL: AOX3, NAD. SKIN: Warm and dry. HEAD: Normocephalic. EYES: No scleral icterus. No injection or drainage. NECK: Supple, trachea midline. No JVD or lymphadenopathy. CARDIOVASCULAR: Regular rate and rhythm without murmurs, gallops, or rubs. RESPIRATORY: Breath sounds equal bilaterally. No accessory muscle use. GASTROINTESTINAL: Abdomen soft, Diffusely tender to palpation, pearl lower quadrants, nondistended. MUSCULOSKELETAL: No cyanosis, or edema. BACK: Nontender without obvious deformity. No CVA tenderness. Procedures None. A/P Problem List: (1) Mesenteric vein thrombosis ICD Code: I81 Status: Acute Assessment and Plan Patient is a 66-year-old male with primary medical history of BPH, history of diabetes, history of gastric bypass who came into the hospital for complaints of severe abdominal pain. 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 Abdominal pain - more severe post-prandially. - History of gastric bypass - Patient had also a history of multiple DVTs and was treated with warfarin for approximately 6 months at a time. - CT abd/pelvis indicates portal vein thrombosis, mesenteric vein thrombosis. - Work up rules out PNH. - s/p ex lap. Spoke to Dr. Dillard. No bowel resection was done. Patient is now on clear liquid diet and complaining of pain with PO intake, advance diet slow and as tolerated. Surgery following, appreciate input. - If he tolerates food better and abdominal pain is well controlled, we can potentially discharge patient tomorrow 03/08/2017. Full code. Lovenox 40mg Q24hrs. This note was transcribed by FEDERICO Stout. I, Dr. Walter Tabor personally performed the history, physical exam, and medical decision making; and confirmed the accuracy of the information in the transcribed note. Authenticated by Dr. Walter Tabor on 03/07/17 at 23:59. Joe Tabor DO Mar 07, 2017 09:25 Lisandra Kent Mar 07, 2017 12:32
--- NOTE | 2017-03-07 13:27 | PD.ONC.PN ---
Subjective Subjective Remarks Afebrile overnight. Pt resting in bed with eyes closed. C/o abdominal pain "Feels like gas" No oozing Objective Data Date Time Temp Pulse Resp B/P Pulse Ox O2 Delivery O2 Flow Rate FiO2 03/07/17 08:45 152/70 03/07/17 08:00 96.8 61 18 152/70 94 03/07/17 08:00 96.8 61 18 152/70 94 03/07/17 05:19 18 03/07/17 04:39 97.7 62 17 124/62 96 03/07/17 00:12 97.6 60 18 133/63 98 03/06/17 22:00 18 03/06/17 20:20 99.1 80 17 142/62 97 03/06/17 18:11 94 Nasal Cannula 2.00 03/06/17 16:50 97.8 61 20 148/68 94 03/06/17 16:50 97.8 61 20 148/68 94 03/06/17 15:21 16 03/06/17 14:00 16 03/07/17 03/07/17 03/07/17 07:00 15:00 23:00 Intake Total 280 ml Output Total 600 ml Balance -320 ml Result Diagram: 03/06/17 1310 03/06/17 0421 Laboratory Results Laboratory Tests Test 03/06/17 03/07/17 21:48 04:23 Activated Partial 40.6 SEC 41.5 SEC Thromboplast Time Administered Medications Medications (Trade) Dose Ordered Sig/Aman Route PRN Reason Start Time Stop Time Status Last Admin Dose Admin Senna/Docusate Sodium (Rajani-Colace) 1 tab BID PO 03/04/17 21:00 03/07/17 09:17 Aspirin (Ecotrin Ec) 81 mg DAILY PO 03/05/17 09:00 03/07/17 09:00 Cyanocobalamin (Vitamin B12) 2,000 mcg DAILY PO 03/05/17 09:00 03/07/17 09:17 Pantoprazole Sodium 20 mg 20 mg DAILY PO 03/05/17 09:00 03/07/17 09:17 Sodium Chloride (NS 1000 ml Inj) 1,000 ml @ 100 mls/hr Q10H IV 03/05/17 19:23 03/07/17 05:16 Sodium Chloride (NS Flush) 2 ml BID IV FLUSH 03/05/17 21:00 03/05/17 20:24 Ondansetron HCl (Zofran Inj) 4 mg Q4H PRN IV NAUSEA OR VOMITING 03/05/17 19:30 03/06/17 11:49 Morphine Sulfate (Morphine 1 Mg/ ml IMPREGNATOR AND DRIER HELPER) 30 mg UNSCH IV 03/05/17 19:30 03/06/17 15:21 IMPREGNATOR AND DRIER HELPER Dosage Infused (Pha) 1 1 Q8HR .XX 03/05/17 22:00 03/07/17 05:19 Heparin Sodium/ Dextrose (Heparin-D5W Inj) 250 ml @ 0 mls/hr TITRATE IV 03/06/17 12:30 03/07/17 05:17 Calcium Carbonate (Tums Chew) 500 mg Q2H PRN CHEW acid reflux 03/06/17 18:00 03/06/17 18:11 Objective Remarks GENERAL: Well-appearing middle aged male, lying in bed in no distress. SKIN: Warm and dry. HEAD: Normocephalic. EYES: No injection or drainage. NECK: Supple, trachea midline. CARDIOVASCULAR: Regular rate and rhythm without murmurs. RESPIRATORY: Breath sounds equal bilaterally. No accessory muscle use. GASTROINTESTINAL: Abdomen soft. Mildly tender to deep palpation. EXTREMITIES: No cyanosis, or edema. NEUROLOGICAL: No obvious focal deficit. Awake, alert, and oriented x3. Assessment/Plan Problem List: (1) Mesenteric vein thrombosis Status: Acute Plan: 03/07: Tolerating heparin gtt. No bleeding. Will likely keep him on heparin for another day and then transition him to Eliquis. Will followup in 2 weeks as an outpatient. --CT Abdomen/Pelvis shows mesenteric thrombosis. This is the pt's third known clot. He previously was treated with Coumadin twice after a LLE DVT and also a portal vein DVT. Assessment 66 y/o male with history of multiple thromboses admitted with abdominal pain Attending Statement less abd pain. Continue heparin , no bleeding Start eliquis Tomorrow and stop heparin The exam, history, and the medical decision-making described in the above note were completed with the assistance of the mid-level provider. I reviewed and agree with the findings presented. I attest that I had a [id number] encounter with the patient on the same day, and personally performed and documented my assessment and findings in the medical record. Cleo Merchant Mar 07, 2017 13:26 Natalie Stark MD Mar 08, 2017 00:35
[2017-03-08 00:09] VITALS: BP 136/71; PULSE 67; RESP 17; TEMP 97.7; O2SAT 93
[2017-03-08] MEDS: MORPHINE SULFATE 30 MG/30 ML PCA IV SCH (01:15)
[2017-03-08 04:26] VITALS: BP 156/68; PULSE 60; RESP 18; TEMP 98.7; O2SAT 96
[2017-03-08] MEDS: PCA - TOTAL MG MORPHINE DELIVERED PER SHIFT SCH (05:31)
[2017-03-08 06:01] LABS: APTT (PATIENT) 45.7 SEC (24.3-30.1)
[2017-03-08 06:04] LABS: HEMATOCRIT 31.3 % (39.0-51.0); MEAN CELL VOLUME 89.3 FL (80.0-100.0); MEAN CORPUSCULAR HEMOGLOBIN 30.5 PG (27.0-34.0); MEAN CORPUSCULAR HGB CONC 34.2 % (32.0-36.0); PLATELET COUNT 161 TH/MM3 (150-450); RED BLOOD COUNT 3.51 MIL/MM3 (4.50-5.90); RED CELL DISTRIBUTION WIDTH 12.6 % (11.6-17.2); REVIEW FLAG FINAL; WHITE BLOOD COUNT 6.1 TH/MM3 (4.0-11.0)
[2017-03-08] MEDS: SODIUM CHLOR 0.9% 1000 ML INJ 1,000 ML IV SCH (07:23)
[2017-03-08 08:00] VITALS: BP 176/76; PULSE 53; RESP 18; TEMP 98; O2SAT 96
[2017-03-08] MEDS: DOCUSATE SODIUM 50 MG/SENNA 8.6 MG TAB PO SCH (08:23)
[2017-03-08] MEDS: PANTOPRAZOLE SOD 20 MG DELAYED RELEASE TAB PO SCH (08:23)
[2017-03-08] MEDS: CYANOCOBALAMIN 1,000 MCG TAB PO SCH (08:23)
[2017-03-08] MEDS: ASPIRIN EC 81 MG TABEC PO SCH (08:23)
[2017-03-08] MEDS: SODIUM CHLORIDE 0.9% FLUSH 10 ML FLUSH IV FLUSH SCH (08:24)
--- NOTE | 2017-03-08 08:46 | HHI.PR ---
Objective Vitals Vital Signs Date Time Temp Pulse Resp B/P Pulse Ox O2 Delivery O2 Flow Rate FiO2 03/08/17 08:00 98.0 53 18 176/76 96 03/08/17 05:31 20 03/08/17 04:26 98.7 60 18 156/68 96 03/08/17 01:15 20 03/08/17 00:09 97.7 67 17 136/71 93 03/07/17 20:56 20 03/07/17 20:29 98.4 62 18 147/71 97 03/07/17 20:00 Room Air 03/07/17 19:44 95 21 03/07/17 16:45 168/80 03/07/17 16:00 97.8 71 20 168/80 94 03/07/17 14:00 16 03/07/17 13:35 95 03/07/17 12:45 148/69 03/07/17 12:00 97.0 64 20 148/69 95 03/07/17 12:00 97.0 64 18 148/69 95 I/O 03/07/17 03/07/17 03/07/17 03/08/17 03/08/17 03/08/17 07:00 15:00 23:00 07:00 15:00 23:00 Intake Total 280 ml 800 ml 1533 ml 1101 ml Output Total 600 ml 800 ml 700 ml 100 ml Balance -320 ml 800 ml 733 ml 401 ml -100 ml Intake Oral 280 ml 540 ml 380 ml IV Total 800 ml 993 ml 721 ml Output Urine Total 600 ml 800 ml 700 ml 100 ml # Voids 1 Result Diagram: 03/08/17 0405 03/06/17 0421 Objective Remarks GENERAL: AOX3, NAD. SKIN: Warm and dry. HEAD: Normocephalic. EYES: No scleral icterus. No injection or drainage. NECK: Supple, trachea midline. No JVD or lymphadenopathy. CARDIOVASCULAR: Regular rate and rhythm without murmurs, gallops, or rubs. RESPIRATORY: Breath sounds equal bilaterally. No accessory muscle use. GASTROINTESTINAL: Abdomen soft, Diffusely tender to palpation, pearl lower quadrants, nondistended. MUSCULOSKELETAL: No cyanosis, or edema. BACK: Nontender without obvious deformity. No CVA tenderness. Procedures None. A/P Problem List: (1) Mesenteric vein thrombosis ICD Code: I81 Status: Acute Assessment and Plan Patient is a 66-year-old male with primary medical history of BPH, history of diabetes, history of gastric bypass who came into the hospital for complaints of severe abdominal pain. 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 Abdominal pain - more severe post-prandially. - History of gastric bypass - Patient had also a history of multiple DVTs and was treated with warfarin for approximately 6 months at a time. - CT abd/pelvis indicates portal vein thrombosis, mesenteric vein thrombosis. - Work up rules out PNH. - s/p ex lap. Spoke to Dr. Dillard. No bowel resection was done. Patient is now on clear liquid diet and complaining of pain with PO intake, advance diet slow and as tolerated. Surgery following, appreciate input. - If he tolerates food better and abdominal pain is well controlled, we can potentially discharge patient tomorrow 03/08/2017. Full code. Lovenox 40mg Q24hrs. This note was transcribed by FEDERICO Stout. I, Dr. Walter Tabor personally performed the history, physical exam, and medical decision making; and confirmed the accuracy of the information in the transcribed note. Authenticated by Dr. Walter Tabor on 03/07/17 at 23:59. Joe Tabor DO Mar 08, 2017 08:46
[2017-03-08] MEDS ORDERED: APIXABAN 5 MG TABLET PO SCH (10:00)
--- NOTE | 2017-03-08 10:02 | PD.ONC.PN ---
Subjective Subjective Remarks Afebrile overnight. Patient eager to go home. No bleeding. Pain well controlled. Objective Data Date Time Temp Pulse Resp B/P Pulse Ox O2 Delivery O2 Flow Rate FiO2 03/08/17 08:00 98.0 53 18 176/76 96 03/08/17 05:31 20 03/08/17 04:26 98.7 60 18 156/68 96 03/08/17 01:15 20 03/08/17 00:09 97.7 67 17 136/71 93 03/07/17 20:56 20 03/07/17 20:29 98.4 62 18 147/71 97 03/07/17 20:00 Room Air 03/07/17 19:44 95 21 03/07/17 16:45 168/80 03/07/17 16:00 97.8 71 20 168/80 94 03/07/17 14:00 16 03/07/17 13:35 95 03/07/17 12:45 148/69 03/07/17 12:00 97.0 64 20 148/69 95 03/07/17 12:00 97.0 64 18 148/69 95 03/08/17 03/08/17 03/08/17 07:00 15:00 23:00 Intake Total 1101 ml Output Total 700 ml 100 ml Balance 401 ml -100 ml Result Diagram: 03/08/17 0405 03/06/17 0421 Laboratory Results Laboratory Tests Test 03/08/17 04:05 White Blood Count 6.1 TH/MM3 Red Blood Count 3.51 MIL/MM3 Hemoglobin 10.7 GM/DL Hematocrit 31.3 % Mean Corpuscular Volume 89.3 FL Mean Corpuscular Hemoglobin 30.5 PG Mean Corpuscular Hemoglobin 34.2 % Concent Red Cell Distribution Width 12.6 % Platelet Count 161 TH/MM3 Mean Platelet Volume 9.0 FL Activated Partial 45.7 SEC Thromboplast Time Administered Medications Medications (Trade) Dose Ordered Sig/Aman Route PRN Reason Start Time Stop Time Status Last Admin Dose Admin Senna/Docusate Sodium (Rajani-Colace) 1 tab BID PO 03/04/17 21:00 03/08/17 08:23 Lactulose (Lactulose Liq) 30 ml DAILY PRN PO SEVERE CONSITIPATION 03/04/17 16:45 03/08/17 08:23 Aspirin (Ecotrin Ec) 81 mg DAILY PO 03/05/17 09:00 03/08/17 08:23 Cyanocobalamin (Vitamin B12) 2,000 mcg DAILY PO 03/05/17 09:00 03/08/17 08:23 Pantoprazole Sodium 20 mg 20 mg DAILY PO 03/05/17 09:00 03/08/17 08:23 Sodium Chloride (NS 1000 ml Inj) 1,000 ml @ 100 mls/hr Q10H IV 03/05/17 19:23 03/07/17 14:56 Sodium Chloride (NS Flush) 2 ml BID IV FLUSH 03/05/17 21:00 03/05/17 20:24 Ondansetron HCl (Zofran Inj) 4 mg Q4H PRN IV NAUSEA OR VOMITING 03/05/17 19:30 03/06/17 11:49 Morphine Sulfate (Morphine 1 Mg/ ml GENERAL SUPERVISOR) 30 mg UNSCH IV 03/05/17 19:30 03/08/17 01:15 GENERAL SUPERVISOR Dosage Infused (Pha) 1 Q8HR .XX 03/05/17 22:00 03/08/17 05:31 Calcium Carbonate (Tums Chew) 500 mg Q2H PRN CHEW acid reflux 03/06/17 18:00 03/06/17 18:11 Objective Remarks GENERAL: Middle aged male, upright in bed in nad. SKIN: Warm and dry. HEAD: Normocephalic. EYES: No injection or drainage. NECK: Supple, trachea midline. CARDIOVASCULAR: +S1/S2 RESPIRATORY: Breath sounds equal bilaterally. No accessory muscle use. GASTROINTESTINAL: Abdomen soft, non-tender, nondistended. incision sites clean without bleeding. EXTREMITIES: No cyanosis NEUROLOGICAL: No obvious focal deficit. Awake, alert, and oriented x3. Assessment/Plan Problem List: (1) Mesenteric vein thrombosis Status: Acute Plan: 03/08: stop heparin gtt, start Eliquis 10mg PO BID x 7 days then begin 5mg PO BID thereafter. follow up in clinic. --CT Abdomen/Pelvis shows mesenteric thrombosis. This is the pt's third known clot. He previously was treated with Coumadin twice after a LLE DVT and also a portal vein DVT. Assessment 66 y/o male with history of multiple thromboses admitted with abdominal pain Attending Statement abd pain is better. stop heparin and start Eliquis. FU as outpt. sign off available prn The exam, history, and the medical decision-making described in the above note were completed with the assistance of the mid-level provider. I reviewed and agree with the findings presented. I attest that I had a [id number] encounter with the patient on the same day, and personally performed and documented my assessment and findings in the medical record. Katerin Chaney Mar 08, 2017 10:02 Natalie Stark MD Mar 08, 2017 13:29
[2017-03-08 10:15] VITALS: O2SAT 97
[2017-03-08 12:00] VITALS: BP 162/75; PULSE 58; RESP 18; TEMP 98.3; O2SAT 97
[2017-03-08] MEDS ORDERED: APIX5TAB PO (14:23)
[2017-03-08] MEDS ORDERED: HYDR-3288 PO (14:23)
[2017-03-08 16:36] VITALS: BP 155/70; PULSE 52; RESP 20; TEMP 98; O2SAT 95
--- NOTE | 2017-03-08 23:14 | HHI.DS ---
Discharge Summary Admission Date Mar 04, 2017 at 16:46 Discharge Date: Mar 08, 2017 Admitting Diagnosis mesenteric vein thrombosis/inflammation (1) Mesenteric vein thrombosis ICD Code: I81 Procedures 03/05/2017 1. Laparoscopy with extensive lysis of adhesions approximately an hour and 40 minutes worth. 2. Repair of Zhong defect and defect at enteroenterostomy. Brief History - From Admission Written by Ailyn Georges, acting as scribe for Dr. Tabor on 03/04/17 at 18:07. Patient is a 66-year-old male with primary medical history of BPH, history of diabetes, history of gastric bypass who came into the hospital for complaints of severe abdominal pain. Patient states that pain came in last December and they did a CAT scan and found during that time. About 7 days ago pain restarted. Pain is described as sharp mid abdominal pain, aggravated by eating, associated with nausea, rated 3 over 4 intermittently and 10 over 10 with occurrence. Patient has tried taking Tylenol but it wasn't relieved and has been taking 6-10 Advil per day within the last few days. He hasn't been eating well and is very nauseous every time. States that he lost 12 pounds in the last 4 weeks. He called his primary care doctor today and was told to go to the ED for further evaluation. He states he his urine color is orange with decrease water intake. 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 Denies fevers, vomiting, diarrhea, chest pain, palpitations. Denies dizziness, headaches. Denies shortness of breath, cough, dyspnea. Denies change in vision, weakness. Denies dysuria, hematuria. CBC/BMP: 03/08/17 0405 03/06/17 0421 Significant Findings Laboratory Tests Test 03/06/17 03/06/17 03/06/17 03/07/17 04:21 13:10 21:48 04:23 Red Blood Count 3.82 MIL/MM3 3.58 MIL/MM3 (4.50-5.90) (4.50-5.90) Hemoglobin 11.6 GM/DL 10.7 GM/DL (13.0-17.0) (13.0-17.0) Hematocrit 34.2 % 32.2 % (39.0-51.0) (39.0-51.0) Neutrophils (%) (Auto) 86.6 % (16.0-70.0) Lymphocytes (%) (Auto) 4.4 % (9.0-44.0) Monocytes (%) (Auto) 8.9 % (0.0-8.0) Neutrophils # (Auto) 8.6 TH/MM3 (1.8-7.7) Lymphocytes # (Auto) 0.4 TH/MM3 (1.0-4.8) Random Glucose 221 MG/DL (74-106) Calcium Level 7.2 MG/DL (8.5-10.1) Protein Corrected Calcium 8.0 MG/DL (8.5-10.1) Total Protein 5.6 GM/DL (6.4-8.2) White Blood Count 11.2 TH/MM3 (4.0-11.0) Prothrombin Time 13.3 SEC (9.8-11.6) Activated Partial 40.6 SEC 41.5 SEC Thromboplast Time (24.3-30.1) (24.3-30.1) Test 03/08/17 04:05 Red Blood Count 3.51 MIL/MM3 (4.50-5.90) Hemoglobin 10.7 GM/DL (13.0-17.0) Hematocrit 31.3 % (39.0-51.0) Activated Partial 45.7 SEC Thromboplast Time (24.3-30.1) Imaging Last Impressions Abdomen/Pelvis CT 03/04/17 1316 Signed Impressions: Service Date/Time: Saturday, March 04, 2017 14:29 - CONCLUSION: 1. Markedly abnormal examination demonstrating dilated thrombosed and inflamed mesenteric veins (SMV and IMV) with thrombus extending to the confluence of the portal vein. Segmental intrahepatic portal vein thrombus likely reflecting emboli. The bowel appears grossly normal at this time without evidence for significant bowel thickening, infarction, or perforation. There is no evidence for significant portal hypertension or cirrhosis. Prior CT examination demonstrated patent but prominent mesenteric veins. Overall findings may reflect a low flow mesenteric AV malformation with subsequent thrombosis or significant outflow obstruction with subsequent thrombosis although differential considerations include severe enteritis and portal hypertension in the appropriate clinical setting. Urgent surgical consultation is recommended. 1. Findings were personally discussed with Dr. Zhong. Mejia Shin MD PE at Discharge GENERAL: AOX3, NAD. SKIN: Warm and dry. HEAD: Normocephalic. EYES: No scleral icterus. No injection or drainage. NECK: Supple, trachea midline. No JVD or lymphadenopathy. CARDIOVASCULAR: Regular rate and rhythm without murmurs, gallops, or rubs. RESPIRATORY: Breath sounds equal bilaterally. No accessory muscle use. GASTROINTESTINAL: Abdomen soft, Minimal tenderness to palpation, pearl lower quadrants, nondistended. MUSCULOSKELETAL: No cyanosis, or edema. BACK: Nontender without obvious deformity. No CVA tenderness. Pt update on day of discharge Patient is doing well. No acute concerns. Was able to tolerate full liquid diet well. Abdominal pain minimal. Hospital Course Patient is a 66-year-old male with primary medical history of BPH, history of diabetes, history of gastric bypass who came into the hospital for complaints of severe abdominal pain. 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 Abdominal pain - more severe post-prandially. - History of gastric bypass - Patient had also a history of multiple DVTs and was treated with warfarin for approximately 6 months at a time. - CT abd/pelvis indicates portal vein thrombosis, mesenteric vein thrombosis. - Work up rules out PNH. - s/p ex lap. Spoke to Dr. Dillard. No bowel resection was done. Patient is tolerating full liquid diet well and tolerated regular diet well too. - Hematology switched patient from heparin to Apixaban. - We will continue Apixaban 10mg BID for total of 7 days and then 5mg BID. - Hematology appointment in a week or so for follow up including hypercoagulable work up. Pt Condition on Discharge: Good Discharge Disposition: Discharge Home Discharge Time: > 30 minutes Discharge Instructions DIET: Follow Instructions for: As Tolerated, No Restrictions Activities you can perform: Regular-No Restrictions Follow up Referrals: Oncology - 10 Days with Natalie Stark MD PCP Follow-up - 1 Week New Medications: Hydrocodone-Acetaminophen (Malcom) 7.5-325 mg Tab 1 TAB PO Q6H PRN PAIN #20 Ref 0 TAB Apixaban (Eliquis) 5 Mg Tab 10 MG PO BID Blood Clot Prevention #13 TAB Apixaban (Eliquis) 5 Mg Tab 5 MG PO BID START this prescrition on 03/15/2017 AM. Blood Clot Prevention #60 TAB Continued Medications: Cyanocobalamin (Vitamin B-12) 1,000 Mcg Tab 2000 MCG PO DAILY Nutritional Supplement #1 Ref 0 BOTTLE Multiple Vitamin (Multi Vitamin Daily) 1 Tab Tab 1 TAB PO DAILY Multiple Vitamins W/ Minerals (Eye Vitamins & Minerals) 1 Tab Tab 1 TAB PO DAILY Omeprazole Magnesium (Prilosec) 20 Mg Tab 20 MG PO DAILY Discontinued Medications: Aspirin DR (Aspirin Adult Low Strength) 81 Mg Tabdr 81 MG PO DAILY TAB Tadalafil (Cialis) 5 Mg Tab 5 MG PO DAILY Do not exceed 1 dose/day. Ref 0 TAB Joe Tabor DO Mar 08, 2017 23:14
[2017-03-15] MEDS ORDERED: APIXABAN 5 MG TABLET PO SCH (09:00)
== END 2017-03-08 18:44 | disposition home or self-care (01) | DRG 335 ==
LOC: NEPE 11:51 → NEDA 16:46 → N07B 18:47
PROVIDERS: ADMIT Hospitalist; ATTEND Hospitalist
PROC: 0WQF4ZZ Repair Abdominal Wall, Percutaneous Endoscopic Approach (ICD-10-PCS; 2017-03-05)
PROC: 0DN84ZZ Release Small Intestine, Percutaneous Endoscopic Approach (ICD-10-PCS; 2017-03-05)
PROC: 0DNV4ZZ Release Mesentery, Percutaneous Endoscopic Approach (ICD-10-PCS; principal; 2017-03-05 15:47)
DX: K56.5 Intestinal adhesions [bands] with obstruction (postinfection) (principal); I81 Portal vein thrombosis; K46.0 Unspecified abdominal hernia with obstruction, without gangrene; I10 Essential (primary) hypertension; E11.9 Type 2 diabetes mellitus without complications; D73.5 Infarction of spleen; E66.01 Morbid (severe) obesity due to excess calories; E78.00 Pure hypercholesterolemia, unspecified; Z98.84 Bariatric surgery status; Z87.442 Personal history of urinary calculi; M19.90 Unspecified osteoarthritis, unspecified site; K21.9 Gastro-esophageal reflux disease without esophagitis; N40.0 Benign prostatic hyperplasia without lower urinary tract symptoms; Z80.0 Family history of malignant neoplasm of digestive organs; Z80.1 Family history of malignant neoplasm of trachea, bronchus and lung; Z86.718 Personal history of other venous thrombosis and embolism; M06.9 Rheumatoid arthritis, unspecified; Z68.28 Body mass index [BMI] 28.0-28.9, adult; K44.9 Diaphragmatic hernia without obstruction or gangrene
CPT/HCPCS: 74177; 80048; 80053; 81001; 82248; 83010; 83070; 83615; 83690; 83735; 84155; 85025; 85027; 85044; 85060; 85610; 85730; 86880; 93005; 94150; 96361; 96374; 96375; J0131; J0690; J1100; J1644; J2250; J2270; J2405; J3010; J7030; Q9967

== ENCOUNTER 2017-09-07 12:26 | Emergency (ER) | payer MEDICARE ==
[~2017-09-07] VITALS: Ht 182.9 cm; Wt 86.0 kg
[~2017-09-07 12:26] MED LIST changes: -AMBI5TAB PO; +APIX5TAB PO; -ASPI81CH3; -CIAL20TA PO; +HYDR-3288 PO; +MULT1TAB46 PO; +MULT1TAB93 PO; -OMPR20CCR PO; +PRIL20TA2 PO; -TAMS0.4C67 PO; +VITA10002 PO
[2017-09-07 12:29] VITALS: BP 134/64; PULSE 61; RESP 24; TEMP 97.9; O2SAT 100
[2017-09-07 12:40] VITALS: O2SAT 98
[2017-09-07] MEDS ORDERED: TAMS5CAP PO (12:43)
[2017-09-07] MEDS ORDERED: SODIUM CHLOR 0.9% 1000 ML INJ 1,000 ML IV SCH (12:53)
--- NOTE | 2017-09-07 12:58 | PD ---
HPI Chief Complaint: Abdominal Pain Time Seen by Provider: 12:34 Travel History International Travel<30 days: No Contact w/Intl Traveler<30days: No Traveled to known affect area: No History of Present Illness HPI 67-year-old male presents to the emergency department for evaluation of epigastric abdominal pain that started approximately 45 minutes prior to arrival. Patient states the pain is achy and sharp without radiation. He currently rates the pain 7 out of 10. He denies any exacerbating or alleviating factors. He states that he did originally feel a lump in the epigastric region, but no longer feels it. Patient presents history gastric bypass surgery, exploratory abdominal surgery with hernia repair with adhesion removal, mesenteric artery thrombosis, DVT, GERD, BPH. Patient reports that the blood clots were all provoked after surgery for a period of immobilization. Patient reports epigastric abdominal pain that has been ongoing after eats, but this is different and the most severe he has felt. Patient denies any fevers or chills. He reports nausea, but no vomiting. No diarrhea or constipation. No blood in his stool. Patient does state he had a CTA 2 weeks ago which revealed no thrombosis, but there was something on his pancreas and he is to have an MRI of the abdomen done next week. Moderate severity. PFSH Past Medical History Hx Anticoagulant Therapy: Yes Arthritis: Yes Asthma: No Autoimmune Disease: No Blood Disorders: No Cancer: No Cardiovascular Problems: Yes High Cholesterol: Yes Chest Pain: No Congestive Heart Failure: No COPD: No Cerebrovascular Accident: No Diabetes: Yes Patient Takes Glucophage: No Diminished Hearing: No Endocrine: No Gastrointestinal Disorders: Yes (HX GASTRIC BYPASS 2007) GERD: Yes Genitourinary: Yes Headaches: No Hepatitis: No Hiatal Hernia: Yes Hypertension: Yes Immune Disorder: No Kidney Stones: Yes Musculoskeletal: Yes Neurologic: No Psychiatric: No Reproductive: No Respiratory: No Immunizations Current: No Migraines: No Myocardial Infarction: No Renal Failure: No Seizures: No Sleep Apnea: No Thyroid Disease: No Ulcer: No Past Surgical History Abdominal Surgery: Yes (GASTRIC BYPASS 08/02/08) AICD: No Appendectomy: No Body Medical Devices: DENTAL IMPLANTS Cardiac Surgery: No Cholecystectomy: No Ear Surgery: No Endocrine Surgery: No Eye Surgery: Yes (BILAT CATARACT EXT) Genitourinary Surgery: Yes (LITHOTRIPSY) Gynecologic Surgery: No Joint Replacement: No Oral Surgery: No Thoracic Surgery: No Other Surgery: Yes (L HAND 2003, R HAND 2005) Social History Alcohol Use: No Tobacco Use: No Substance Use: No Allergies-Medications (Allergen,Severity, Reaction): Coded Allergies: bacitracin (Unverified Allergy, Severe, Rash-ALL "SPORINS" COAUSE A RASH AND BLISTERS", 09/07/17) gramicidin D (Unverified Allergy, Severe, Rash-ALL "SPORINS" COAUSE A RASH AND BLISTERS", 09/07/17) neomycin (Unverified Allergy, Severe, Rash-ALL "SPORINS" COAUSE A RASH AND BLISTERS", 09/07/17) polymyxin B (Unverified Allergy, Severe, Rash-ALL "SPORINS" COAUSE A RASH AND BLISTERS", 09/07/17) Reported Meds & Prescriptions Reported Meds & Active Scripts Active Eliquis (Apixaban) 5 Mg Tab 5 Mg PO BID START this prescrition on 03/15/2017 AM. Eliquis (Apixaban) 5 Mg Tab 10 Mg PO BID Reported Flomax (Tamsulosin HCl) 0.4 Mg Cap 0.4 Mg PO HS Multi Vitamin Daily (Multiple Vitamin) 1 Tab Tab 1 Tab PO DAILY Vitamin B-12 (Cyanocobalamin) 1,000 Mcg Tab 2,000 Mcg PO DAILY Prilosec (Omeprazole Magnesium) 20 Mg Tab 20 Mg PO DAILY Review of Systems Except as stated in HPI: all other systems reviewed are Neg Physical Exam Narrative GENERAL: Well-nourished, well-developed male patient, afebrile. SKIN: Focused skin assessment warm/dry. HEAD: Normocephalic. Atraumatic. EYES: No scleral icterus. No injection or drainage. NECK: Supple, trachea midline. No JVD or lymphadenopathy. CARDIOVASCULAR: Regular rate and rhythm without murmurs, gallops, or rubs. RESPIRATORY: Breath sounds equal bilaterally. No accessory muscle use. Lungs sounds are clear to auscultation. GASTROINTESTINAL: Abdomen soft and nondistended. Patient has tenderness to palpation of the epigastric region and periumbilical region. MUSCULOSKELETAL: No cyanosis, or edema. BACK: Nontender without obvious deformity. No CVA tenderness. RECTAL EXAM: No masses or tenderness, stool is brown. This exam was done withAmy RN, at bedside. Data Data Last Documented VS Vital Signs Date Time Temp Pulse Resp B/P (MAP) Pulse Ox O2 Delivery O2 Flow Rate FiO2 09/07/17 12:42 17 09/07/17 12:40 98 Room Air 09/07/17 12:29 97.9 61 Orders Orders Complete Blood Count With Diff (09/07/17 12:53) Comprehensive Metabolic Panel (09/07/17 12:53) Lipase (09/07/17 12:53) Prothrombin Time / Inr (Pt) (09/07/17 12:53) Act Partial Throm Time (Ptt) (09/07/17 12:53) Urinalysis - C+S If Indicated (09/07/17 12:53) Ct Abd/Pel W Iv Contrast(Rout) (09/07/17 12:53) Iv Access Insert/Monitor (09/07/17 12:53) Ecg Monitoring (09/07/17 12:53) Oximetry (09/07/17 12:53) Morphine Inj (Morphine Inj) (09/07/17 13:00) Ondansetron Inj (Zofran Inj) (09/07/17 13:00) Sodium Chlor 0.9% 1000 Ml Inj (Ns 1000 M (09/07/17 12:53) Sodium Chloride 0.9% Flush (Ns Flush) (09/07/17 13:00) Electrocardiogram (09/07/17 12:53) Morphine Inj (Morphine Inj) (09/07/17 13:00) Morphine Inj (Morphine Inj) (09/07/17 13:00) Potassium Chloride (Kcl) (09/07/17 13:45) Iohexol 350 Inj (Omnipaque 350 Inj) (09/07/17 13:50) Binder, Surg. Abdominal L/F Ea (09/07/17 14:38) Ed Discharge Order (09/07/17 14:39) Labs Laboratory Tests Test 09/07/17 12:55 White Blood Count 3.6 TH/MM3 Red Blood Count 3.56 MIL/MM3 Hemoglobin 9.8 GM/DL Hematocrit 29.3 % Mean Corpuscular Volume 82.2 FL Mean Corpuscular Hemoglobin 27.6 PG Mean Corpuscular Hemoglobin Concent 33.6 % Red Cell Distribution Width 16.5 % Platelet Count 151 TH/MM3 Mean Platelet Volume 8.1 FL Neutrophils (%) (Auto) 66.7 % Lymphocytes (%) (Auto) 23.5 % Monocytes (%) (Auto) 8.4 % Eosinophils (%) (Auto) 1.1 % Basophils (%) (Auto) 0.3 % Neutrophils # (Auto) 2.4 TH/MM3 Lymphocytes # (Auto) 0.8 TH/MM3 Monocytes # (Auto) 0.3 TH/MM3 Eosinophils # (Auto) 0.0 TH/MM3 Basophils # (Auto) 0.0 TH/MM3 CBC Comment DIFF FINAL Differential Comment Prothrombin Time 12.5 SEC Prothromb Time International Ratio 1.2 RATIO Activated Partial Thromboplast Time 24.9 SEC Blood Urea Nitrogen 9 MG/DL Creatinine 0.70 MG/DL Random Glucose 156 MG/DL Total Protein 6.2 GM/DL Albumin 3.3 GM/DL Calcium Level 8.0 MG/DL Alkaline Phosphatase 171 U/L Aspartate Amino Transf (AST/SGOT) 20 U/L Alanine Aminotransferase (ALT/SGPT) 22 U/L Total Bilirubin 0.4 MG/DL Sodium Level 141 MEQ/L Potassium Level 3.1 MEQ/L Chloride Level 107 MEQ/L Carbon Dioxide Level 26.3 MEQ/L Anion Gap 8 MEQ/L Estimat Glomerular Filtration Rate 112 ML/MIN Lipase 129 U/L MDM Medical Decision Making Medical Screen Exam Complete: Yes Emergency Medical Condition: Yes Medical Record Reviewed: Yes Interpretation(s) Last Impressions Abdomen/Pelvis CT 09/07/17 1253 Signed Impressions: Service Date/Time: Thursday, September 07, 2017 13:37 - CONCLUSION: SMA and portal vein are patent. I don't have enough opacification to verify that the mesenteric portal veins are patent. There is no bowel wall edema to suggest thrombosis No other significant abnormality is appreciated as the cause for the sudden onset of abdominal pain. Correlation is suggested.. Timmy Regalado MD FACR Differential Diagnosis Pancreatitis versus pancreatic mass versus diverticulitis versus cholecystitis versus cholelithiasis Narrative Course 67-year-old male presents to the emergency department for evaluation of epigastric abdominal pain that started 45 minutes prior to arrival. EKG, CBC, CMP, lipase, PTT, PT/INR, UA are ordered and pending. CT the abdomen/pelvis with IV contrast is ordered and pending. Patient is given morphine 4 mg IV, Zofran 4 mg IV, normal saline 1 L IV bolus. EKG shows sinus bradycardia, her heart rate 50, no acute ST changes. CBC shows a leukopenia 3.6, hemoglobin 9.8, hematocrit 29.3. CMP shows hypokalemia of 3.1 , glucose 156. Lipase is 129. Coags show no acute abnormality. CT abdomen/ pelvis shows SMA and portal vein are patent. I don't have enough opacification to verify that the mesenteric portal veins are patent. There is no bowel wall edema to suggest thrombosis No other significant abnormality is appreciated as the cause for the sudden onset of abdominal pain. Correlation is suggested. Patient is given potassium 40 mEq by mouth for hypokalemia. Fecal Hemoccult test was completed due to anemia. This was negative. Patient currently has no pain. He states that once he laid down and the lump went away, he had no pain. My attending physician, Dr. Owen, was able to palpate defect in the abdominal wall. Physical and symptoms are consistent with a ventral hernia that is now reduced. The patient will be given abdominal binder. He is instructed to follow-up with his primary care physician. He is to return here if he is unable to reduce hernia. He verbalizes agreement and understanding to this. The patient was discharged in stable condition with instructions, including return instructions and follow up instructions. HemaPrompt Point of Care Internal Pos. & Neg. Controls: Passed Fecal Specimen Occult Blood: Negative Diagnosis Primary Impression: Ventral hernia Qualified Codes: K43.9 - Ventral hernia without obstruction or gangrene Referrals: Primary Care Physician call for appointment Patient Instructions: General Instructions, Ventral Hernia (ED), Narcotic given in the ED Additional Instructions: Wear abdominal binder. Follow-up with your primary care physician. Return to the emergency department for any acute worsening of symptoms. Med/Other Pt SpecificInfo: No Change to Meds Disposition: 01 DISCHARGE HOME Condition: Stable Diane Hammond FEDERICO Sep 07, 2017 12:58
[2017-09-07] MEDS ORDERED: MORPHINE SULFATE 2 MG/ML INJ IV PUSH ONE ×2 (13:00)
[2017-09-07] MEDS ORDERED: SODIUM CHLORIDE 0.9% FLUSH 10 ML FLUSH IV FLUSH PRN (13:00)
[2017-09-07] MEDS ORDERED: ONDANSETRON HCL 4 MG/2 ML VIAL IVP ONE (13:00)
[2017-09-07] MEDS ORDERED: MORPHINE SULFATE 4 MG/ML INJ IV PUSH ONE (13:00)
[2017-09-07 13:07] LABS: AUTOMATED NEUTROPHIL # 2.4 TH/MM3 (1.8-7.7); BASOPHIL % 0.3 % (0.0-2.0); EOSINOPHIL % 1.1 % (0.0-4.0); HEMATOCRIT 29.3 % (39.0-51.0); HEMOGLOBIN 9.8 GM/DL (13.0-17.0); LYMPH % 23.5 % (9.0-44.0); LYMPHOCYTE # 0.8 TH/MM3 (1.0-4.8); MEAN CELL VOLUME 82.2 FL (80.0-100.0); MEAN CORPUSCULAR HEMOGLOBIN 27.6 PG (27.0-34.0); MEAN CORPUSCULAR HGB CONC 33.6 % (32.0-36.0); MEAN PLATELET VOLUME 8.1 FL (7.0-11.0); MONO % 8.4 % (0.0-8.0); MONOCYTE # 0.3 TH/MM3 (0-0.9); NEUT % 66.7 % (16.0-70.0); PLATELET COUNT 151 TH/MM3 (150-450); RED BLOOD COUNT 3.56 MIL/MM3 (4.50-5.90); RED CELL DISTRIBUTION WIDTH 16.5 % (11.6-17.2); WHITE BLOOD COUNT 3.6 TH/MM3 (4.0-11.0)
[2017-09-07 13:16] LABS: INTERNATIONAL NORMALIZED RATIO 1.2 RATIO; PROTHROMBIN TIME - PATIENT 12.5 SEC (9.8-11.6)
[2017-09-07 13:24] LABS: ALBUMIN 3.3 GM/DL (3.4-5.0); ALT (GPT) 22 U/L (12-78); AST (GOT) 20 U/L (15-37); BICARBONATE 26.3 MEQ/L (21.0-32.0); BLOOD UREA NITROGEN 9 MG/DL (7-18); CHLORIDE 107 MEQ/L (98-107); GLOMERULAR FILTRATION RATE 112 ML/MIN (>89); GLUCOSE,RANDOM 156 MG/DL (74-106); LIPASE 129 U/L (73-393); SODIUM (NA) 141 MEQ/L (136-145)
[2017-09-07 13:26] LABS: ALKALINE PHOSPHATASE 171 U/L (45-117); TOTAL BILIRUBIN ADULT 0.4 MG/DL (0.2-1.0); TOTAL PROTEIN 6.2 GM/DL (6.4-8.2)
[2017-09-07] MEDS ORDERED: POTASSIUM CHLORIDE 20 MEQ CONTROLLED RELEASE TAB PO ONE (13:45)
[2017-09-07] MEDS ORDERED: IOHEXOL 350 MG/ML 10 ML VIAL (for RAD DIAG) IVCONTRAST ONE (13:50)
--- NOTE | 2017-09-07 14:21 | PD ---
Physical Exam Date Seen by Provider: Sep 07, 2017 Time Seen by Provider: 14:19 Narrative I am seeing this patient with FEDERICO Sanches. This is a 67-year-old gentleman with previous history of gastric bypass, mesenteric ischemia, presents here after he felt a bulge in his abdominal area. 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 He states early thereafter he started feeling discomfort in his epigastrium. The patient states he felt an "egg" sized bulge in his epigastrium. He states that he was in extreme pain. He reports that the pain came in waves and was sharp. He says when his drove him here, he was out in the waiting room and his morning show producer blast him to take away the pain. He says as soon as he came to the room and laid flat, the bulge went away and he felt better. He denies any fevers, chills. He is on blood thinners secondary to his mesenteric ischemia. He reports that he will be taken off of that on September 16. There are no other complaints time my examination. Data Data Last Documented VS Vital Signs Date Time Temp Pulse Resp B/P (MAP) Pulse Ox O2 Delivery O2 Flow Rate FiO2 09/07/17 12:42 17 09/07/17 12:40 98 Room Air 09/07/17 12:29 97.9 61 Orders Orders Complete Blood Count With Diff (09/07/17 12:53) Comprehensive Metabolic Panel (09/07/17 12:53) Lipase (09/07/17 12:53) Prothrombin Time / Inr (Pt) (09/07/17 12:53) Act Partial Throm Time (Ptt) (09/07/17 12:53) Urinalysis - C+S If Indicated (09/07/17 12:53) Ct Abd/Pel W Iv Contrast(Rout) (09/07/17 12:53) Iv Access Insert/Monitor (09/07/17 12:53) Ecg Monitoring (09/07/17 12:53) Oximetry (09/07/17 12:53) Morphine Inj (Morphine Inj) (09/07/17 13:00) Ondansetron Inj (Zofran Inj) (09/07/17 13:00) Sodium Chlor 0.9% 1000 Ml Inj (Ns 1000 M (09/07/17 12:53) Sodium Chloride 0.9% Flush (Ns Flush) (09/07/17 13:00) Electrocardiogram (09/07/17 12:53) Morphine Inj (Morphine Inj) (09/07/17 13:00) Morphine Inj (Morphine Inj) (09/07/17 13:00) Potassium Chloride (Kcl) (09/07/17 13:45) Iohexol 350 Inj (Omnipaque 350 Inj) (09/07/17 13:50) Labs Laboratory Tests Test 09/07/17 12:55 White Blood Count 3.6 TH/MM3 Red Blood Count 3.56 MIL/MM3 Hemoglobin 9.8 GM/DL Hematocrit 29.3 % Mean Corpuscular Volume 82.2 FL Mean Corpuscular Hemoglobin 27.6 PG Mean Corpuscular Hemoglobin Concent 33.6 % Red Cell Distribution Width 16.5 % Platelet Count 151 TH/MM3 Mean Platelet Volume 8.1 FL Neutrophils (%) (Auto) 66.7 % Lymphocytes (%) (Auto) 23.5 % Monocytes (%) (Auto) 8.4 % Eosinophils (%) (Auto) 1.1 % Basophils (%) (Auto) 0.3 % Neutrophils # (Auto) 2.4 TH/MM3 Lymphocytes # (Auto) 0.8 TH/MM3 Monocytes # (Auto) 0.3 TH/MM3 Eosinophils # (Auto) 0.0 TH/MM3 Basophils # (Auto) 0.0 TH/MM3 CBC Comment DIFF FINAL Differential Comment Prothrombin Time 12.5 SEC Prothromb Time International Ratio 1.2 RATIO Activated Partial Thromboplast Time 24.9 SEC Blood Urea Nitrogen 9 MG/DL Creatinine 0.70 MG/DL Random Glucose 156 MG/DL Total Protein 6.2 GM/DL Albumin 3.3 GM/DL Calcium Level 8.0 MG/DL Alkaline Phosphatase 171 U/L Aspartate Amino Transf (AST/SGOT) 20 U/L Alanine Aminotransferase (ALT/SGPT) 22 U/L Total Bilirubin 0.4 MG/DL Sodium Level 141 MEQ/L Potassium Level 3.1 MEQ/L Chloride Level 107 MEQ/L Carbon Dioxide Level 26.3 MEQ/L Anion Gap 8 MEQ/L Estimat Glomerular Filtration Rate 112 ML/MIN Lipase 129 U/L MDM Medical Record Reviewed: Yes Supervised Visit with LUIS FELIPE: Yes Narrative Course Pancreatitis versus reducible ventral hernia versus mesenteric ischemia Murphy Owen MD Sep 07, 2017 14:21
--- NOTE | 2017-09-07 14:25 | RADRPT ---
EXAM DATE/TIME: 09/07/2017 13:37 [facility] COMPARISON: CT ABDOMEN & PELVIS W CONTRAST, March 04, 2017, 14:29. INDICATIONS : Sudden onset of severe mid-abdomen pain and nausea. IV CONTRAST: 71 cc Omnipaque 350 (iohexol) IV ORAL CONTRAST: No oral contrast ingested. RADIATION DOSE: 12.41 CTDIvol (mGy) MEDICAL HISTORY : Gastroesophageal reflux disease. Diabetes mellitus type 2. Cardiovascular disease SURGICAL HISTORY : Gastric bypass. ENCOUNTER: Initial ACUITY: 1 day PAIN SCALE: 9/10 LOCATION: epigastric. TECHNIQUE: Volumetric scanning of the abdomen and pelvis was performed. Using automated exposure control and ad justment of the mA and/or kV according to patient size, radiation dose was kept as low as reasonably achievable to obtain optimal diagnostic quality images. DICOM format image data is available electro nically for review and comparison. FINDINGS: Lung base is are clear. The liver is free of focal defects. Gallbladder is unremarkable. The portal vein appears patent. M esenteric veins are poorly demonstrated there. Spleen is unremarkable Pancreas is unremarkable Right left adrenal glands appear normal There is symmetric renal function There is no ascites. There is about adenopathy. Diverticula are present sigmoid colon diverticulitis. CONCLUSION: SMA and portal vein are patent. I don't have enough opacification to verify that the mesenteric port al veins are patent. There is no bowel wall edema to suggest thrombosis No other significant abnormality is appreciated as the cause for the sudden onset of abdominal pain. Correlation is suggested.. Timmy Regalado MD FACR on September 07, 2017 at 14:19 Board Certified Radiologist. This report was verified electronically.
--- NOTE | 2017-09-07 16:41 | EKG ---
Date Performed: 09/07/2017 Time Performed: 13:20:42 PTAGE: 67 years EKG: SINUS BRADYCARDIA PROLONGED QT INTERVAL ABNORMAL ECG PREVIOUS TRACING : 03/05/2017 13.32 Compared to the previous tracing rate slower DOCTOR: Jadiel Florez Interpretating Date/Time 09/07/2017 16:39:47
== END 2017-09-07 15:43 | disposition home or self-care (01) ==
LOC: NEPE 12:26
DX: K43.9 Ventral hernia without obstruction or gangrene (principal); R94.31 Abnormal electrocardiogram [ECG] [EKG]; R11.0 Nausea; E78.00 Pure hypercholesterolemia, unspecified; E11.9 Type 2 diabetes mellitus without complications; I10 Essential (primary) hypertension; Z79.01 Long term (current) use of anticoagulants
CPT/HCPCS: 74177; 80053; 83690; 85025; 85610; 85730; 93005; 96361; 96374; 96375; 96376; 99285; J2270; J2405; J7030; Q9967

== ENCOUNTER → 2017-12-30 | Outpatient (CLI) | payer MEDICARE ==
[~2017-12-30] MED LIST changes: -HYDR-3288 PO; -MULT1TAB93 PO; +TAMS5CAP PO
[2017-12-30 15:28] LABS: INTERNATIONAL NORMALIZED RATIO 1.3 RATIO; PROTHROMBIN TIME - PATIENT 12.7 SEC (9.8-11.6)
[2017-12-30 17:41] LABS: BASOPHIL % 0.8 % (0.0-2.0); EOSINOPHIL # 0.1 TH/MM3 (0-0.4); EOSINOPHIL % 1.6 % (0.0-4.0); HEMATOCRIT 29.9 % (39.0-51.0); HEMOGLOBIN 9.5 GM/DL (13.0-17.0); LYMPH % 25.9 % (9.0-44.0); LYMPHOCYTE # 1.3 TH/MM3 (1.0-4.8); MEAN CORPUSCULAR HEMOGLOBIN 23.5 PG (27.0-34.0); MEAN CORPUSCULAR HGB CONC 31.8 % (32.0-36.0); MEAN PLATELET VOLUME 7.8 FL (7.0-11.0); MONO % 10.3 % (0.0-8.0); MONOCYTE # 0.5 TH/MM3 (0-0.9); NEUT % 61.4 % (16.0-70.0); PLATELET COUNT 220 TH/MM3 (150-450); RED BLOOD COUNT 4.05 MIL/MM3 (4.50-5.90); RED CELL DISTRIBUTION WIDTH 17.8 % (11.6-17.2); WHITE BLOOD COUNT 4.9 TH/MM3 (4.0-11.0)
[2017-12-30 17:45] LABS: ALT (GPT) 19 U/L (12-78); AST (GOT) 38 U/L (15-37); CALCIUM 8.3 MG/DL (8.5-10.1); CHLORIDE 106 MEQ/L (98-107); CREATININE 1.02 MG/DL (0.60-1.30); GLOMERULAR FILTRATION RATE 73 ML/MIN (>89); GLUCOSE,RANDOM 139 MG/DL (74-106); SODIUM (NA) 142 MEQ/L (136-145)
[2017-12-30 17:47] LABS: ALKALINE PHOSPHATASE 243 U/L (45-117); BICARBONATE 30.8 MEQ/L (21.0-32.0); BLOOD UREA NITROGEN 8 MG/DL (7-18); TOTAL BILIRUBIN ADULT 0.3 MG/DL (0.2-1.0); TOTAL PROTEIN 6.8 GM/DL (6.4-8.2)
== END ==
LOC: PLAB 14:40
PROVIDERS: ATTEND Family Medicine
DX: C25.9 Malignant neoplasm of pancreas, unspecified (principal); Z79.01 Long term (current) use of anticoagulants
CPT/HCPCS: 36415; 80053; 85025; 85610; 85730